=== PATIENT | female | born 1930 | race Caucasian/White ===

== ENCOUNTER 2016-05-26 08:21 | Inpatient (IN) | payer OTHER, MEDICARE ==
--- NOTE | 2016-05-26 08:45 | PDOC ---
History of Present Illness - History of Present Illness Initial Comments: 05/26/16 09:02 The patient is an 85 year old female with significant history of hypertension, hyperlipidemia, IDDM, sent from [facility] for sore throat, left ear pain , nasal congestion, and nonproductive cough that began when she woke up around 1 AM today. She also complains of associated nausea and diffuse headache that began at the same time. The patient denies chest pain or difficulty breathing. No fever or changes. No new body aches. UTD on flu vaccine. <Rosalba Ramsey - Last Filed: 05/26/16 09:30> <Christian Mercer - Last Filed: 05/26/16 10:31> - General Chief Complaint: Cold Symptoms Stated Complaint: FLU LIKE SYMTOMS Time Seen by Provider: 05/26/16 08:37 Past History <Rosalba Ramsey - Last Filed: 05/26/16 09:30> - Past Medical History Anemia: No Asthma: No Cancer: No Cardiac Disorders: No CVA: No COPD: No CHF: No Dementia: No Diabetes: Yes (IDDM) GI Disorders: No Disorders: No HTN: Yes Hypercholesterolemia: Yes Liver Disease: No Psychiatric Problems: Yes (depression, insomnia) Seizures: No Thyroid Disease: Yes (thyroid nodule) Other medical history: osteoarthritis right shoulder, moderate lumbar spondylosis. - Surgical History Appendectomy: Yes Cholecystectomy: Yes - Psycho/Social/Smoking Cessation Hx Anxiety: No Suicidal Ideation: No Smoking History: Never smoked Have you smoked in the past 12 months: No Information on smoking cessation initiated: No Hx Alcohol Use: No Drug/Substance Use Hx: No Substance Use Type: None <Christian Mercer - Last Filed: 05/26/16 10:31> - Past Medical History Allergies/Adverse Reactions: Allergies Allergy/AdvReac Type Severity Reaction Status Date / Time No Known Allergies Allergy Verified 05/26/16 08:38 Home Medications: Ambulatory Orders Acetaminophen [Tylenol -] 500 mg PO TID 05/26/16 Albuterol Sulfate Inhaler - [Ventolin Hfa Inhaler -] 1 - 2 inh PO Q4H 05/26/16 Amlodipine Besylate [Norvasc -] 5 mg PO DAILY 05/26/16 Furosemide [Lasix -] 20 mg PO DAILY 05/26/16 Gabapentin [Neurontin] 300 mg PO TID 05/26/16 Hydrocortisone 2.5% Lotion [Hytone 2.5% Lotion -] 1 applic TP BID 05/26/16 Ibuprofen [Motrin -] 600 mg PO TID 05/26/16 Insulin Glargine,Hum.rec.anlog [Lantus Solostar PEN (NF)] 50 units SQ DAILY Mag Hydrox/Al Hydrox/Simeth [Rulox Suspension] 30 ml PO BID PRN 05/26/16 Magnesium Oxide [Magnesium] 400 mg PO BID 05/26/16 Menthol [Bengay Ultra Strength] 1 each TP DAILY 05/26/16 Mirtazapine [Remeron -] 45 mg PO HS 05/26/16 RX: Simvastatin 20 mg PO DAILY 05/26/16 Venlafaxine HCl ER [Effexor Xr -] 75 mg PO DAILY 05/26/16 Venlafaxine HCl ER [Effexor Xr -] 150 mg PO HS 05/26/16 Review of Systems - Review of Systems Constitutional: No: Chills, Fever HEENTM: Yes: Ear Pain, Nose Congestion, Throat Pain Respiratory: Yes: Cough. No: Shortness of Breath Cardiac (ROS): No: Chest Pain ABD/GI: No: Diarrhea, Nausea, Vomiting : No: Dysuria, Frequency Musculoskeletal: Yes: Joint Pain (chronic) All Other Systems: Reviewed and Negative <Christian Mercer - Last Filed: 05/26/16 10:31> *Physical Exam - Vital Signs Last Vital Signs Temp Pulse Resp BP Pulse Ox 77 18 184/75 92 L 05/26/16 08:31 05/26/16 08:31 05/26/16 08:31 05/26/16 08:31 - Physical Exam Comments: 05/26/16 09:07 GENERAL: The patient is awake, alert, and fully oriented, in no acute distress. HEAD: Normal with no signs of trauma. EYES: Pupils equal, round and reactive to light, extraocular movements intact, sclera anicteric, conjunctiva clear with no pallor. ENT: Left ear: cerumen in canal, small effusion, no obvius TM bulging or erythema. Right ear normal. Nares patent. Oropharynx is mildly erythematous, no exudates or swelling, uvula midline, no tonsillar enlargement. Moist mucous membranes. NECK: Normal range of motion, supple without lymphadenopathy, JVD, or masses. LUNGS: Coarse breath sounds at bilateral lung bases, right>left No wheeze/ crackles. HEART: Regular rate and rhythm, normal S1 and S2 without murmur or rub. ABDOMEN: Soft/nontender/nondistended. BS wnl. No guarding or rebound. No palpable masses. No hepatosplenomegaly. EXTREMITIES: Normal range of motion, no edema. No clubbing or cyanosis. No cords, erythema, or tenderness. NEUROLOGICAL: Cranial nerves II through XII grossly intact. Normal speech, gait deferred. PSYCH: Normal mood, normal affect. SKIN: Warm, Dry, normal turgor. Chronic papular/excoriated rash to shoulder and head (x30 years without evidence of superimposed cellulitis) <Rosalba Ramsey - Last Filed: 05/26/16 09:30> - Vital Signs Last Vital Signs Temp Pulse Resp BP Pulse Ox 77 18 184/75 92 L 05/26/16 08:31 05/26/16 08:31 05/26/16 08:31 05/26/16 08:31 <Christian Mercer - Last Filed: 05/26/16 10:31> Heart Score/ECG Review #1 ECG reviewed & interpreted by me at: 08:37 General ECG Interpretation: Sinus Rhythm, Normal Rate (74), Normal Intervals ( LVH), No acute ischemic changes <Christian Mercer - Last Filed: 05/26/16 10:31> ED Treatment Course - LABORATORY CBC & Chemistry Diagram: 05/26/16 08:43 05/26/16 09:00 - RADIOLOGY Radiology Studies Ordered: Category Date Time Status CHEST X-RAY PORTABLE* [RAD] Stat Radiology 05/26/16 08:43 Ordered <Christian Mercer - Last Filed: 05/26/16 10:31> Medical Decision Making - Medical Decision Making 05/26/16 09:31 Chest x-ray, read and reviewed by Dr. Peres, reveals large heart, new congestive changes, elevated right hemidiaphragm. <Rosalba Ramsey - Last Filed: 05/26/16 09:30> - Medical Decision Making 05/26/16 09:16 A portion of this note was documented by scribe services under my direction. I have reviewed the details of the note, within reason, and agree with the documentation with the following case summary and management plan written by me. 85-year-old female from [facility] with history of diabetes and high cholesterol, admission earlier this year for pneumonia presents with sore throat/left ear pain and cough since around 1 AM, denies any shortness of breath or chest pain. No fevers or chills. Received her flu vaccine. Vitals stable except for O2 sat of 92%. Generally well-appearing, speaking full sentences, no acute distress Remainder of exam as noted with no evidence of strep pharyngitis, otitis, but some abnormal lung sounds at the bases 85 year old female with URI type symptoms since 1 AM, O2 sat notably 92% at triage. Rule out pneumonia or influenza, CHF exacerbation, possibly viral etiology pharyngitis. labs, influenza/strep/RSV swabs, trop cxr, ekg trial of neb reassess 05/26/16 09:46 CXR with congestive changes, WBC 11.7. Given bibasilar abnormalities on lung exam and CXR, seems more consistent with CHF exacerbation/pulm edema than infectious process. Remaining workup still pending. Will start lasix, will need admission. 05/26/16 10:16 Chemistries notable for mild acute renal insufficiency, creatinine 1.3 from baseline 0.9-1.1. Troponin negative. Clinically unchanged, O2 sat improves to 100% on 2L O2, will proceed with admission. UA with 7wbc but no leuk/nitrites. 05/26/16 10:29 Accepted for inpatient tele by Dr. Munoz <Christian Mercer - Last Filed: 05/26/16 10:31> *DC/Admit/Observation/Transfer - Attestations Scribe Attestion: 05/26/16 09:11 Documentation prepared by Rosalba Ramsey, acting as medical parasitologist for Christian Mercer MD. <Rosalba Ramsey - Last Filed: 05/26/16 09:30> - Discharge Dispostion Admit: Yes <Christian Mercer - Last Filed: 05/26/16 10:31> Diagnosis at time of Disposition: Upper respiratory infection Qualifiers: URI type: unspecified viral URI Qualified Code(s): J06.9 - Acute upper respiratory infection, unspecified CHF exacerbation Qualifiers: Congestive heart failure type: diastolic Qualified Code(s): I50.33 - Acute on chronic diastolic (congestive) heart failure - Discharge Dispostion Condition at time of disposition: Fair - Referrals Referrals: Ab Dykes [Primary Care Provider] -
[2016-05-26] MEDS ORDERED: ALBUTEROL SO4 2.5/IPRATROPIUM 0.5 INH SOL 3 ML VIAL.NEB. NEB ONE (09:14)
[2016-05-26 09:35] LABS: BASOPHIL 0.9 % (0-2.0); EOSINOPHIL 2.7 % (0-4.5); MCH 29.2 pg (25.7-33.7); MCHC 33.4 g/dl (32.0-36.0); MEAN CELL VOLUME 87.4 fl (80-96); MEAN PLT VOLUME 9.6 fl (7.5-11.1); NEUTROPHILS 72.3 % (42.8-82.8); PLATELET COUNT 281 K/MM3 (134-434); RDW 13.6 % (11.6-15.6); WHITE BLOOD COUNT 11.7 K/mm3 (4.0-10.0)
[2016-05-26] MEDS ORDERED: FUROSEMIDE 40 MG/4 ML INJECTABLE VIAL IVPUSH ONE (09:45)
[2016-05-26 09:48] LABS: INR 0.96 (0.82-1.09); PROTHROMBIN TIME (PATIENT) 10.6 SEC (9.98-11.88)
[2016-05-26 09:51] LABS: ACTIVATED PTT 35.7 SECONDS (26.9-34.4)
[2016-05-26 10:00] LABS: ALBUMIN 3.8 g/dl (3.4-5.0); ALK PHOS 95 U/L (45-117); ANION GAP 8 (8-16); BILIRUBIN,TOTAL 0.5 mg/dL (0.2-1.0); CALCIUM 8.7 mg/dL (8.5-10.1); CO2 28 mmol/L (21-32); CREATININE 1.3 mg/dL (0.55-1.02); GLUCOSE,RANDOM 127 mg/dL (74-106); SGOT/AST 28 U/L (15-37); SGPT/ALT 23 U/L (12-78); TOT PROT 8.4 g/dl (6.4-8.2); TROPONIN I < 0.02 ng/ml (0.00-0.05)
[2016-05-26] MEDS ORDERED: FUROSEMIDE 40 MG/4 ML INJECTABLE VIAL ONE (10:05)
[2016-05-26 10:12] LABS: URINE APPEARANCE CLEAR; URINE BILIRUBIN NEGATIVE (NEGATIVE); URINE BLOOD NEGATIVE (NEGATIVE); URINE COLOR STRAW; URINE GLUCOSE (UA) NEGATIVE (NEGATIVE); URINE KETONE NEGATIVE (NEGATIVE); URINE LEUK ESTERASE NEGATIVE (NEGATIVE); URINE NITRITE NEGATIVE (NEGATIVE); URINE UROBILINOGEN NEGATIVE E.U./dl (0.2-1.0)
[2016-05-26 10:19] LABS: URINE PROTEIN 2+ (NEGATIVE)
[2016-05-26 10:22] LABS: URINE BACTERIA FEW /hpf (NONE SEEN); URINE MUCUS RARE; URINE RBC <1 /hpf (0-3); URINE WBC 7 /hpf (3-5)
[2016-05-26] MEDS ORDERED: ACETAMINOPHEN 500 MG TABLET (FP) PO PRN (10:58)
[2016-05-26] MEDS ORDERED: ACETAMINOPHEN 325 MG TABLET (FP) PO PRN (11:00)
--- NOTE | 2016-05-26 11:03 | HP ---
CHIEF COMPLAINT: Acute onset SOB PCP: Ab Dykes HISTORY OF PRESENT ILLNESS: 85 year old F brought in from [facility] due to acute onset SOB this AM and treated IV lasix 40mg IV X 1 in the ED. No formal history diagnosis of CHF per history, pt states she does not follow with a development engineer, but she is on lasix at her [place]. Last admission here was 09/2015 when she was admitted for PNA. Currently, reports ongoing nasal congestion, DELUCA, left ear pain. No eye pain, eye discharge, neck pain or myalgias. Denies any known sick contacts, denies any known fevers/chills. Denies any worsening LE. Unknown baseline weight. EKG NSR, trop negative X 1 ROS also positive for throat pain, but continues to have a good appetite. Currently, seen on 2L NC in the ED (at baseline does not use O2) +urinary frequency and dysuria, although UA is negative for infection HCP is daughter Teodora [phone] (home) [phone] (cell) ER course was notable for: (1) WBC 11.7 (2) Cr 1.3 (baseline 0.9-1) (3) CXR significant for cardiomegaly and new congestive changes (4) Flu negative Recent Travel: Denies PAST MEDICAL HISTORY: DM HPL HTN no known CHF history, although on lasix at [place] PAST SURGICAL HISTORY: Appendectomy Cholecystectomy L cataract surgery Thyroid nodule B/l knee replacements hospitalized for depression/insomnia FIzation of left femur fracture "skin disease" --not psoriasis Social History: Smoking: denies Alcohol: denies Drugs: denies Family History: not pertinent Allergies: NKDA No Known Allergies Allergy (Verified 05/26/16 08:38) HOME MEDICATIONS: Medication Instructions Recorded Acetaminophen [Tylenol -] 500 mg PO TID 05/26/16 Albuterol Sulfate Inhaler - 1 - 2 inh PO Q4H 05/26/16 [Ventolin Hfa Inhaler -] Amlodipine Besylate [Norvasc -] 5 mg PO DAILY 05/26/16 Furosemide [Lasix -] 20 mg PO DAILY 05/26/16 Gabapentin [Neurontin] 300 mg PO TID 05/26/16 Hydrocortisone 2.5% Lotion [Hytone 1 applic TP BID 12/31/16 2.5% Lotion -] (Ibuprofen [Motrin -] 600 mg PO TID 05/26/16 Insulin Glargine,Hum.rec.anlog 50 units SQ DAILY 05/26/16 [Lantus Solostar PEN (NF)] Mag Hydrox/Al Hydrox/Simeth [Rulox 30 ml PO BID PRN 05/26/16 Suspension] Magnesium Oxide [Magnesium] 400 mg PO BID 05/26/16 Menthol [Bengay Ultra Strength] 1 each TP DAILY 05/26/16 Mirtazapine [Remeron -] 45 mg PO HS 05/26/16 Simvastatin 20 mg PO DAILY 05/26/16 Venlafaxine HCl ER [Effexor Xr -] 75 mg PO DAILY 05/26/16 Venlafaxine HCl ER [Effexor Xr -] 150 mg PO HS 05/26/16 REVIEW OF SYSTEMS CONSTITUTIONAL: Absent: fever, chills, diaphoresis, generalized weakness, malaise, loss of appetite, weight change HEENT: PRESENT: rhinorrhea, nasal congestion, throat pain, ear pain NEGATIVE: throat swelling, difficulty swallowing, mouth swelling, eye pain, visual changes CARDIOVASCULAR: Absent: chest pain, syncope, palpitations, irregular heart rate, lightheadedness , peripheral edema RESPIRATORY: PRESENT: SOB, at baseline sleeps with 1 pillow for comfort Absent: cough, shortness of breath, dyspnea with exertion, orthopnea, wheezing, stridor, hemoptysis GASTROINTESTINAL: Absent: abdominal pain, abdominal distension, nausea, vomiting, diarrhea, constipation, melena, hematochezia GENITOURINARY: PRESENT: dysuria, frequency NEGATIVE: urgency, hesitancy, hematuria, flank pain, genital pain MUSCULOSKELETAL: Absent: myalgia, arthralgia, joint swelling, back pain, neck pain SKIN: PRESENT: Skin disease "which is not psoriasis" HEMATOLOGIC/IMMUNOLOGIC: Absent: easy bleeding, easy bruising, lymphadenopathy, frequent infections ENDOCRINE: Absent: unexplained weight gain, unexplained weight loss, heat intolerance, cold intolerance NEUROLOGIC: PRESENT: headache NEGATIVE: focal weakness or paresthesias, dizziness, unsteady gait, seizure, mental status changes, bladder or bowel incontinence PSYCHIATRIC: PRESENT: h/o depression Absent: anxiety, suicidal or homicidal ideation, hallucinations. PHYSICAL EXAMINATION Gen: obese, elderly female, wearing 2L NC. Appears in NAD, speaking in full sentences HEENT: erythematous pharynx, +small exudates, no cervical lymphadenopathy. B/l ear canal with cerumen, difficult to visual left tympanic membranes but no discharge noted. R TM clear CV: regular, thick neck, no NVD Pulm: no wheeze, good inspiratory effort, bibasilar crackles Abd: Obese, nontender Ext: bilateral knee replacement scars, non pitting edema Skin: several skin lesions - notable on bilateral ears with crusted/dried blood , and upper back/neck. Not super-infected ASSESSMENT/PLAN: # SOB possibly multifactorial - ?Acute on chronic diastolic vs systolic CHF exacerbation vs acute viral illness -no prior known cardiac history, although patient is on lasix at [place]. Intially with uncontrolled BP 185/90 recorded prior to transfer -denies dietary indiscretions, states she receives all medications at [place] but doesn't know which ones. Per [place] records received lasix 20mg daily -received Lasix 40mg IV in ED, cont IV lasix, check BNP, echo -daily weights, low Na-diabetic diet -consult cardiology -Flu negative -treat supportively with nebs, O2 prn -ordered for LE doptinalers #DM restart home medications - Levemir 40 units (on 50 units of Lantus at [place]), can uptitrate as needed -hold glimepiride as associated with risk of hypoglycemia -insulin sliding scale #Leukocytosis -UA negative, CXR negative for infection -f/u blood culture -f/u strep throat culture -ear exam is benign with only cerumen, overlying skin lesions do not appear to be super-infected #HTN -needs improved control, currently on norvasc and losartan at [place] -will continue losartan, may benefit from b-jorge pending echo results -will need additional prn meds #ANISH -Cr 1.3 on admission, baseline 0.9-1 -likely to increase given recent IV lasix administration. Would not give IV fluids -hold motrin pt was previously taking #DELUCA can tylenol 1000mg IV X1, ordered for additional 325mg PO prn doses #HPL -cont simvastatin #Skin lesions hydrocortisone ointment #Elevated PTT -interestingly elevated and suggestive of possible coagulopathy, ie antiphospholipid Ab (pt not on HSQ at [place]) -borderline high , f/u in PTT AM #psych -h/o depression - ordered for venlafaxine ER dosing AM/PM -mirtazapine d/c'd on 04/25/16 PPx: ordered for lovenox today, would recommend early ambulation, PT Visit type - Emergency Visit Emergency Visit: Yes ED Registration Date: 05/26/16 Care time: The patient presented to the Emergency Department on the above date and was hospitalized for further evaluation of their emergent condition. - New Patient This patient is new to me today: No - Critical Care Critical Care patient: No
[2016-05-26] MEDS ORDERED: ACETAMINOPHEN 1000 MG/100 ML VIAL (NON FORMULARY) IVPB ONE (11:15)
[2016-05-26] MEDS ORDERED: ACETAMINOPHEN INJECTION 100 ML IVPB ONE (11:29)
[2016-05-26] MEDS ORDERED: ENOXAPARIN NA (PORCINE) 40 MG/0.4 ML DISP.SYRIN SQ ONE (11:29)
[2016-05-26 12:10] LABS: VENOUS BLOOD GAS HCO3 27.6 meq/L (22-29)
[2016-05-26 12:11] LABS: VENOUS PH 7.3 (7.31-7.41)
[2016-05-26] MEDS ORDERED: MAG HYDROX/AL HYDROX/SIMETH 30 ML UNIT-DOSE CUP PO PRN (12:55)
[2016-05-26] MEDS ORDERED: LOSARTAN POTASSIUM 25 MG TABLET ONE (12:55)
[2016-05-26] MEDS ORDERED: INSULIN DETEMIR 100 UNITS/ML MDV SQ ONE (12:57)
[2016-05-26] MEDS: LOSARTAN POTASSIUM 50 MG TABLET (FP) PO SCH (13:12)
[2016-05-26] MEDS: INSULIN DETEMIR 100 UNITS/ML MDV SQ SCH (13:12)
--- NOTE | 2016-05-26 13:23 | CONSULT ---
Consult Consult Specialty:: Cardiology Referred by:: Hospitalist Reason for Consultation:: SOB, possible CHF - History of Present Illness Chief Complaint: SOB History of Present Illness: 85 year old woman with a history of HTN, HLD, DMII, possible CHF (on lasix at [place] ), prior admission for PNA, admitted with ear pain, throat pain, nasal congestion, and sob that she states started last night, also noted to be hypoxic. reports significant weight gain since admission to the assisted. no pnd, orthopnea, or LE edema. no chest pain, palpitations, lightheadedness, dizziness, syncope, or near syncope. - History Source History Provided By: Patient, Medical Record Limitations to Obtaining History: No Limitations - Past Medical History Cardio/Vascular: Yes: HTN, Hyperlipdemia Pulmonary: Yes: Pneumonia Psych: Yes: Depression Endocrine: Yes: Diabetes Mellitus - Past Surgical History Past Surgical History: Yes: Appendectomy, Cholecystectomy, Hysterectomy - Alcohol/Substance Use Hx Alcohol Use: No History of Substance Use: reports: None - Smoking History Smoking history: Never smoked Have you smoked in the past 12 months: No - Social History Usual Living Arrangement: Snf ADL: Support Services Occupation: retired History of Recent Travel: No Home Medications - Allergies Allergies/Adverse Reactions: Allergies Allergy/AdvReac Type Severity Reaction Status Date / Time No Known Allergies Allergy Verified 05/26/16 08:38 - Home Medications Home Medications: Ambulatory Orders Acetaminophen [Tylenol -] 500 mg PO TID 05/26/16 Albuterol Sulfate Inhaler - [Ventolin Hfa Inhaler -] 1 - 2 inh PO Q4H 05/26/16 Amlodipine Besylate [Norvasc -] 5 mg PO DAILY 05/26/16 Furosemide [Lasix -] 20 mg PO DAILY 05/26/16 Gabapentin [Neurontin] 300 mg PO TID 05/26/16 Hydrocortisone 2.5% Lotion [Hytone 2.5% Lotion -] 1 applic TP BID 05/26/16 Ibuprofen [Motrin -] 600 mg PO TID 05/26/16 Insulin Glargine,Hum.rec.anlog [Lantus Solostar PEN (NF)] 50 units SQ DAILY Mag Hydrox/Al Hydrox/Simeth [Rulox Suspension] 30 ml PO BID PRN 05/26/16 Magnesium Oxide [Magnesium] 400 mg PO BID 05/26/16 Menthol [Bengay Ultra Strength] 1 each TP DAILY 05/26/16 Mirtazapine [Remeron -] 45 mg PO HS 05/26/16 Simvastatin 20 mg PO DAILY 05/26/16 Venlafaxine HCl ER [Effexor Xr -] 75 mg PO DAILY 05/26/16 Venlafaxine HCl ER [Effexor Xr -] 150 mg PO HS 05/26/16 Family Disease History - Family Disease History Family History: Denies Review of Systems - Review of Systems Constitutional: denies: No Symptoms, Chills, Diaphoresis, Fever, Lethargy, Loss of Appetite, Malaise, Night Sweats, Unintentional Wgt. Loss, Weakness, Other Eyes: denies: No Symptoms, Blind Spots, Blurred Vision, Double Vision, Eye Pain , Floaters, Photophobia, Recent Change in Vision, Other HENT: reports: Ear Pain, Nasal Congestion, Throat Pain. denies: No Symptoms, Difficult Swallowing, Ear Discharge, Epistaxis, Gingival Bleeding, Hearing Loss , Mouth Swelling, Ocular Prosthesis, Toothache, Ringing in Ears, Other Neck: denies: No Symptoms, Decreased ROM, Lumps, Pain on Movement, Stiffness, Swollen Glands, Tenderness, Other Cardiovascular: reports: Shortness of Breath. denies: No Symptoms, Chest Pain, Edema, Palpitations, Other Respiratory: reports: Cough, SOB, SOB on Exertion. denies: No Symptoms, Exercise Intolerance, Hemoptysis, Orthopnea, PND, Snoring, Wheezing, Other Gastrointestinal: denies: No Symptoms, Abdominal Pain, Bloating, Constipation, Diarrhea, Dysphagia, Indigestion, Melena, Nausea, Rectal Bleeding, Vomiting, Vomiting Blood, Other Genitourinary: denies: No Symptoms, Burning, Discharge, Dysuria, Flank Pain, Frequency, Hematuria, Incontinence, Lesions, Menses, Pain, Testicular Mass, Testicular Pain, Testicular Swelling, Urgency, Vaginal Bleeding, Other Breasts: denies: No Symptoms Reported, See HPI, Breast Implants, Discharge from Nipple, Lumps, Pain, Skin Changes, Other Musculoskeletal: denies: No Symptoms, Back Pain, Crepitus, Decreased ROM, Extremity Pain, Joint Pain, Joint Swelling, Muscle Pain, Muscle Cramps, Muscle Weakness, Other Integumentary: denies: No Symptoms, Blister, Bruising, Change in Color, Eczema, Erythema, Incision, Lesions, Lump, Pallor, Pruritis, Rash, Wound, Other Neurological: denies: No Symptoms, Change in LOC, Change in Speech, Confusion, Dizziness, Headache, Incoordination, Numbness, Parasthesia, Pre-Existing Deficit , Seizure, Syncope, Tremors, Unsteady Gait, Weakness, Other Endocrine: denies: No Symptoms, Excessive Sweating, Flushing, Increased Hunger, Increased Thirst, Intolerance to Cold, Intolerance to Heat, Unexplained Weight Gain, Unexplained Weight Loss, Other Hematology/Lymphatic: denies: No Symptoms, Easily Bruised, Excessive Bleeding, Swollen Glands, Other Psychiatric: denies: No Symptoms, Altered Sleep Pattern, Anxiety, Depression, Hallucinations, Panic, Paranoia, Suicidal, Other - Risk Factors Known Risk Factors: Yes: Age, Hypercholesterolemia, Hypertension Vital Signs: Vital Signs Temperature 98.5 F 05/26/16 09:20 Pulse Rate 77 05/26/16 08:31 Respiratory Rate 18 05/26/16 08:31 Blood Pressure 184/75 05/26/16 08:31 O2 Sat by Pulse Oximetry (%) 92 L 05/26/16 08:31 Constitutional: Yes: No Distress, Calm, Obese Eyes: Yes: Conjunctiva Clear, EOM Intact, PERRL HENT: Yes: WNL, Atraumatic, Normocephalic Neck: Yes: WNL, Supple, Trachea Midline Respiratory: Yes: Regular, Cough, Diminished (slight dec b/l bases). No: Rales , Rhonchi, Wheezes Gastrointestinal: Yes: WNL, Normal Bowel Sounds, Soft. No: Distention, Tenderness Renal/: Yes: WNL Cardiovascular: Yes: WNL, Regular Rate and Rhythm. No: Bradycardia, Tachycardia , Pulse Irregular, Gallop, Rub, Varicosities JVD: No Carotid Bruit: No PMI: Non-Displaced Heart Sounds: Yes: S1, S2. No: Split S2, S3, S4, Clicks, Gallop, Rub, Bruit Murmur: Yes: Systolic Murmur (apex), Grade 3. No: Diastolic Murmur Musculoskeletal: Yes: WNL Extremities: Yes: WNL Edema: No Peripheral Pulses WNL: Yes Peripheral Pulses: 2+ Left Doralis Pedis, 2+ Right Dorsalis Pedis Integumentary: Yes: WNL Neurological: Yes: WNL, Alert, Oriented, Cran Nerves II-XII Intact ...Motor Strength: WNL Psychiatric: Yes: WNL, Alert, Oriented - Other Data Labs, Other Data: INR, PTT INR 0.96 (0.82-1.09) 05/26/16 09:00 ekg-nsr, no sig ST abnl Imaging - Results Chest X-ray: Report Reviewed, Image Reviewed EKG: Report Reviewed, Image Reviewed Other: Report Reviewed, Image Reviewed (tele-nsr) Problem List - Problems (1) CHF exacerbation Code(s): I50.9 - HEART FAILURE, UNSPECIFIED Qualifiers: Congestive heart failure type: diastolic Qualified Code(s): I50.33 - Acute on chronic diastolic (congestive) heart failure (2) Diabetes Code(s): E11.9 - TYPE 2 DIABETES MELLITUS WITHOUT COMPLICATIONS (3) Hyperlipidemia Code(s): E78.5 - HYPERLIPIDEMIA, UNSPECIFIED (4) Hypertension Code(s): I10 - ESSENTIAL (PRIMARY) HYPERTENSION (5) SOB (shortness of breath) Code(s): R06.02 - SHORTNESS OF BREATH Assessment/Plan 85 year old woman with a history of HTN, HLD, DMII, possible CHF (on lasix at [place] ), prior admission for PNA, admitted with ear pain, throat pain, nasal congestion, and sob that she states started last night, also noted to be hypoxic. SOB-likely multifactorial -likely URI with mild superimposed acute on chronic CHF (unknown type) -does not appear significantly volume overloaded despite Cxr findings, minimal pulmonary rales, no LE edema -she does have a murmur on exam, loudest in apex, possible mitral regurgitation with flash pulm edema secondary to uncontrolled HTN -given 1 dose Lasix 40mg IV in er -can cont current Lasix 20mg IV daily -monitor strict I/os and daily weights -will re-evaluate for need for additional lasix -work up and treatment of URI in progress -HTN control, cont losartan 100mg daily for now, can add amlodipine or nifedipine if needed for additional HTN control -cardiac enzymes wnl x 1, no ischemia on ekg
[2016-05-26] MEDS ORDERED: amLODIPine BESYLATE 5 MG TABLET (FP) PO ONE (13:48)
[2016-05-26 13:58] VITALS: BMI 37.5
[2016-05-26] MEDS ORDERED: GABAPENTIN 100 MG CAPSULE (FP) PO SCH ×2 (14:00)
[2016-05-26] MEDS: MIRTAZAPINE 15 MG TABLET (FP) PO SCH (16:11)
[2016-05-26] MEDS: GABAPENTIN 100 MG CAPSULE (FP) PO SCH ×2 (16:11→21:58)
[2016-05-26] MEDS: INSULIN SLIDING SCALE (NOVOLOG) 1 VIAL SQ SCH ×2 (17:19→22:02)
[2016-05-26] MEDS: ATORVASTATIN CA 20 MG TABLET (FP) PO SCH (21:58)
[2016-05-26] MEDS: traMADol HCL 50 MG TABLET PO SCH (21:58)
[2016-05-27] MEDS: INSULIN SLIDING SCALE (NOVOLOG) 1 VIAL SQ SCH ×4 (06:25→21:47)
[2016-05-27] MEDS: GABAPENTIN 100 MG CAPSULE (FP) PO SCH ×3 (06:54→21:48)
[2016-05-27 07:18] LABS: MCH 29.3 pg (25.7-33.7); MCHC 33.4 g/dl (32.0-36.0); MEAN CELL VOLUME 87.8 fl (80-96); MEAN PLT VOLUME 9.3 fl (7.5-11.1); PLATELET COUNT 277 K/MM3 (134-434); RDW 13.6 % (11.6-15.6); WHITE BLOOD COUNT 9.9 K/mm3 (4.0-10.0)
[2016-05-27 07:58] LABS: CALCIUM 8.1 mg/dL (8.5-10.1); CREATININE 1.5 mg/dL (0.55-1.02); MAGNESIUM 2.7 mg/dL (1.8-2.4)
[2016-05-27] MEDS ORDERED: PT OWN MED DRAWER 7, Y5N ONE ×3 (08:23→17:30)
[2016-05-27] MEDS ORDERED: VENLAFAXINE HCL 75 MG TABLET PO SCH (09:00)
[2016-05-27] MEDS ORDERED: FUROSEMIDE 40 MG/4 ML INJECTABLE VIAL IVPUSH SCH ×2 (10:00→17:21)
[2016-05-27] MEDS: MIRTAZAPINE 15 MG TABLET (FP) PO SCH (10:24)
[2016-05-27] MEDS: traMADol HCL 50 MG TABLET PO SCH ×2 (10:25→21:53)
[2016-05-27] MEDS: amLODIPine BESYLATE 5 MG TABLET (FP) PO SCH (10:25)
[2016-05-27] MEDS: LOSARTAN POTASSIUM 50 MG TABLET (FP) PO SCH (10:25)
[2016-05-27] MEDS: VENLAFAXINE HCL 75 MG E.R. CAPSULES (FP) PO SCH ×2 (10:25→17:31)
[2016-05-27] MEDS: INSULIN DETEMIR 100 UNITS/ML MDV SQ SCH (10:30)
--- NOTE | 2016-05-27 11:23 | PN ---
Progress Note, Physician History of Present Illness: seen and examined today in nad. states she is feeling better. no overnight events. no new complaints. - Current Medication List Current Medications: Active Medications Acetaminophen (Tylenol -) 325 mg PO Q6H PRN PRN Reason: FEVER OR PAIN Al Hydroxide/Mg Hydroxide (Mylanta Oral Suspension -) 30 ml PO Q6HPO PRN PRN Reason: INDIGESTION Albuterol Sulfate (Ventolin 0.083% Nebulizer Soln -) 1 amp NEB Q4H PRN PRN Reason: SHORT OF BREATH/WHEEZING Amlodipine Besylate (Norvasc -) 5 mg PO DAILY [facility] Last Admin: 05/27/16 10:25 Dose: 5 mg Atorvastatin Calcium (Lipitor -) 20 mg PO HS [facility] Last Admin: 05/26/16 21:58 Dose: 20 mg Furosemide (Lasix Injection -) 20 mg IVPUSH DAILY [facility] Last Admin: 05/27/16 10:24 Dose: 20 mg Gabapentin (Neurontin -) 300 mg PO TID [facility] Last Admin: 05/27/16 06:54 Dose: 300 mg Hydrocortisone (Anusol 2.5% Hc Cream -) 1 applic TP DAILY [facility] Insulin Aspart (Novolog Vial Sliding Scale -) 1 vial SQ ACHS [facility] PRN Reason: Protocol Last Admin: 05/27/16 06:25 Dose: Not Given Insulin Detemir (Levemir Vial) 40 units SQ DAILY [facility] Last Admin: 05/27/16 10:30 Dose: 40 units Losartan Potassium (Cozaar -) 100 mg PO DAILY [facility] Last Admin: 05/27/16 10:25 Dose: 100 mg Mirtazapine (Remeron -) 45 mg PO DAILY [facility] Last Admin: 05/27/16 10:24 Dose: 45 mg Tramadol HCl (Ultram -) 50 mg PO BID [facility] Last Admin: 05/27/16 10:25 Dose: 50 mg Venlafaxine HCl (Effexor Xr -) 75 mg PO DAILY@0800 [facility] Last Admin: 05/27/16 10:25 Dose: 75 mg Venlafaxine HCl (Effexor Xr -) 150 mg PO DAILY@1730 [facility] - Objective Vital Signs: Vital Signs Temperature 98.8 F 05/27/16 10:32 Pulse Rate 71 05/27/16 10:32 Respiratory Rate 20 01/01/17 10:32 Blood Pressure 133/64 01/01/17 10:32 O2 Sat by Pulse Oximetry (%) 95 05/26/16 21:00 Constitutional: Yes: No Distress, Calm, Obese Eyes: Yes: WNL, Conjunctiva Clear, EOM Intact, PERRL HENT: Yes: WNL, Atraumatic, Normocephalic Neck: Yes: WNL, Supple, Trachea Midline Cardiovascular: Yes: Regular Rate and Rhythm, Murmur, S1, S2. No: Bradycardia, Tachycardia, Pulse Irregular, Bruit, JVD, Gallop, Rub, S3, S4, Varicosities Respiratory: Yes: Regular, Diminished (slightly decreased b/l bases). No: Rales , Rhonchi, Wheezes Gastrointestinal: Yes: WNL, Normal Bowel Sounds, Soft. No: Distention, Tenderness Musculoskeletal: Yes: WNL Extremities: Yes: WNL Edema: No Peripheral Pulses WNL: Yes Peripheral Pulses: Left Doralis Pedis: 2+, Right Dorsalis Pedis: 2+ Integumentary: Yes: WNL Neurological: Yes: WNL, Alert, Oriented, Cran Nerves II-XII Intact ...Motor Strength: WNL Psychiatric: Yes: WNL, Alert, Oriented Labs: CBC, BMP 05/27/16 06:00 05/27/16 06:00 INR, PTT INR 0.96 (0.82-1.09) 05/26/16 09:00 - ....Imaging Chest X-ray: Report Reviewed, Image Reviewed EKG: Report Reviewed, Image Reviewed Other: Report Reviewed, Image Reviewed (tele-nsr, occasional pvcs, no sig arrhythmia) Problem List - Problems (1) CHF exacerbation Code(s): I50.9 - HEART FAILURE, UNSPECIFIED Qualifiers: Congestive heart failure type: diastolic Qualified Code(s): I50.33 - Acute on chronic diastolic (congestive) heart failure (2) Diabetes Code(s): E11.9 - TYPE 2 DIABETES MELLITUS WITHOUT COMPLICATIONS (3) Hyperlipidemia Code(s): E78.5 - HYPERLIPIDEMIA, UNSPECIFIED (4) Hypertension Code(s): I10 - ESSENTIAL (PRIMARY) HYPERTENSION (5) SOB (shortness of breath) Code(s): R06.02 - SHORTNESS OF BREATH Assessment/Plan 85 year old woman with a history of HTN, HLD, DMII, possible CHF (on lasix at [place] ), prior admission for PNA, admitted with ear pain, throat pain, nasal congestion, and sob that she states started last night, also noted to be hypoxic. SOB-likely multifactorial, URI with mild superimposed acute on chronic CHF ( unknown type) -improved today -I/os not recorded -cont current Lasix dose for now -would repeat Cxr to re-evaluate for pulm vasc congestion -she does have a murmur on exam, loudest in apex, possible mitral regurgitation with flash pulm edema secondary to uncontrolled HTN -plan for echo tomorrow if available -monitor strict I/os and daily weights -URI improving -HTN control, cont losartan 100mg daily, norvasc 5mg daily was started today for additional HTN control -cardiac enzymes wnl x 2, no ischemia on ekg
[2016-05-27] MEDS ORDERED: ENOXAPARIN NA (PORCINE) 40 MG/0.4 ML DISP.SYRIN SQ SCH (11:30)
[2016-05-27] MEDS ORDERED: INSULIN (NOVOLOG) ASPART 100 UNITS/ML 10ML VIAL ONE (11:46)
--- NOTE | 2016-05-27 13:12 | EKG ---
Test Reason : Blood Pressure : / mmHG Vent. Rate : 074 BPM Atrial Rate : 074 BPM P-R Int : 202 ms QRS Dur : 094 ms QT Int : 406 ms P-R-T Axes : 019 -11 012 degrees QTc Int : 450 ms NORMAL SINUS RHYTHM MINIMAL VOLTAGE CRITERIA FOR LVH, MAY BE NORMAL VARIANT NONSPECIFIC ST ABNORMALITY Confirmed by MD KOFI, SUSAN ([id number]) on 05/27/2016 1:12:25 PM Referred By: Overread By: SUSAN KIRBY MD
[2016-05-27] MEDS: HYDROCORTISONE 2.5% TOPICAL CREAM 30 GM TUBE TP SCH ×2 (14:17→14:19)
--- NOTE | 2016-05-27 20:40 | PN ---
Physical Exam: SUBJECTIVE: Patient seen and examined having dyspnea on exertion. no chest pain or palpitations. OBJECTIVE: Vital Signs Temperature 98.2 F 05/27/16 18:35 Pulse Rate 73 05/27/16 18:35 Respiratory Rate 20 05/27/16 18:35 Blood Pressure 113/60 05/27/16 18:35 O2 Sat by Pulse Oximetry (%) 93 L 05/27/16 10:30 GENERAL: The patient is awake, alert, and fully oriented, in no acute distress. HEAD: Normal with no signs of trauma. EYES: PERRL, extraocular movements intact, sclera anicteric, conjunctiva clear. No ptosis. ENT: Ears normal, nares patent, oropharynx clear without exudates, moist mucous membranes. NECK: Trachea midline, full range of motion, supple. LUNGS: decreased BS BL , no W/R/R, no accessory muscle use. On 2l NC HEART: Regular rate and rhythm, S1, S2 positive, SEM2/6 ,no rub or gallop. ABDOMEN: Soft, nontender, nondistended, normoactive bowel sounds, no guarding, no rebound, no hepatosplenomegaly, no masses. EXTREMITIES: 2+ pulses, warm, well-perfused, no edema. NEUROLOGICAL: Cranial nerves II through XII grossly intact. Normal speech, gait not observed. PSYCH: Normal mood, normal affect. SKIN: Warm, dry, normal turgor, no rashes or lesions noted Laboratory Results - last 24 hr 05/26/16 05/27/16 05/27/16 22:01 06:00 06:00 WBC 9.9 RBC 4.23 Hgb 12.4 Hct 37.1 MCV 87.8 MCHC 33.4 RDW 13.6 Plt Count 277 MPV 9.3 PTT (Actin FS) Sodium 145 Potassium 4.1 Chloride 108 H Carbon Dioxide 31 Anion Gap 6 L BUN 29 H Creatinine 1.5 H POC Glucometer 119 Random Glucose 91 D Calcium 8.1 L Magnesium 2.7 H D 05/27/16 05/27/16 05/27/16 06:00 06:22 11:42 WBC RBC Hgb Hct MCV MCHC RDW Plt Count MPV PTT (Actin FS) 40.0 H Sodium Potassium Chloride Carbon Dioxide Anion Gap BUN Creatinine POC Glucometer 122 196 Random Glucose Calcium Magnesium 05/27/16 17:26 WBC RBC Hgb Hct MCV MCHC RDW Plt Count MPV PTT (Actin FS) Sodium Potassium Chloride Carbon Dioxide Anion Gap BUN Creatinine POC Glucometer 125 Random Glucose Calcium Magnesium Active Medications Generic Name Dose Route Start Last Admin Trade Name Freq PRN Reason Stop Dose Admin Acetaminophen 325 mg 05/26/16 11:00 Tylenol - PO Q6H PRN FEVER OR PAIN Al Hydroxide/Mg Hydroxide 30 ml 05/26/16 12:55 Mylanta Oral Suspension - PO Q6HPO PRN INDIGESTION Albuterol Sulfate 1 amp 05/26/16 10:54 Ventolin 0.083% Nebulizer Soln - NEB Q4H PRN SHORT OF BREATH/WHEEZING Amlodipine Besylate 5 mg 05/27/16 10:00 05/27/16 10:25 Norvasc - PO 5 mg DAILY [facility] Administration Atorvastatin Calcium 20 mg 05/26/16 22:00 05/26/16 21:58 Lipitor - PO 20 mg HS [facility] Administration Furosemide 40 mg 05/27/16 17:21 Lasix Injection - IVPUSH DAILY [facility] Gabapentin 300 mg 05/26/16 14:00 05/27/16 14:16 Neurontin - PO 300 mg TID [facility] Administration Hydrocortisone 1 applic 05/26/16 12:15 05/27/16 14:19 Anusol 2.5% Hc Cream - TP 1 applic DAILY [facility] Administration Insulin Aspart 1 vial 05/26/16 16:30 05/27/16 17:31 Novolog Vial Sliding Scale - SQ Not Given ACHS [facility] Protocol Insulin Detemir 40 units 05/26/16 12:00 05/27/16 10:30 Levemir Vial SQ 40 units DAILY [facility] Administration Losartan Potassium 100 mg 05/26/16 11:45 05/27/16 10:25 Cozaar - PO 100 mg DAILY [facility] Administration Mirtazapine 45 mg 05/26/16 13:15 05/27/16 10:24 Remeron - PO 45 mg DAILY [facility] Administration Tramadol HCl 50 mg 05/26/16 22:00 05/27/16 10:25 Ultram - PO 50 mg BID [facility] Administration Venlafaxine HCl 75 mg 05/27/16 08:00 05/27/16 10:25 Effexor Xr - PO 75 mg DAILY@0800 [facility] Administration Venlafaxine HCl 150 mg 05/27/16 17:30 05/27/16 17:31 Effexor Xr - PO 150 mg DAILY@1730 [facility] Administration Microbiology 05/26/16 09:46 Urine - Urine Clean Catch Urine Culture - Final NO GROWTH OBTAINED 05/26/16 08:43 Blood - Peripheral Venous Blood Culture - Preliminary NO GROWTH OBTAINED AFTER 24 HOURS, INCUBATION TO CONTINUE FOR 4 DAYS. 05/26/16 08:43 Blood - Peripheral Venous Blood Culture - Preliminary NO GROWTH OBTAINED AFTER 24 HOURS, INCUBATION TO CONTINUE FOR 4 DAYS. 05/26/16 09:19 Throat Throat Culture - Final NO BETA HEMOLYTIC STREPTOCOCCI ISOLATED 05/26/16 09:19 Throat Group A Strep Rapid Antigen - Final 05/26/16 09:00 Nasopharyngeal Swab Influenza Types A,B Antigen (AMADA) - Final 05/26/16 09:00 Nasopharyngeal Swab - Final ASSESSMENT/PLAN: Patient is a 85 year old woman with a history of HTN, HLD, DMII, possible CHF ( on lasix at [place]), prior admission for PNA, sob that she states started last night , also noted to be hypoxic. # Acute SOB on exertion multifactorial - URI vs Acute on chronic diastolic/ systolic CHF exacerbation On Lasix continue /Losartan #T2DM on insulin continue home meds; Levemir 40 units (on 50 units of Lantus at [place]), hold glimepiride as associated with risk of hypoglycemia -insulin sliding scale # acute Leukocytosis improved UA negative, CXR negative for infection -No growth so far , strep throat culture negative follow the send out #HTN controlled continue norvasc and losartan at [place]; echo is pending -#ANISH is worsening Cr 1.3 -->1.5 now will decrease Lasix and decrease losartan 50mg from 100mg (baseline 0.9-1) # h/o depression - ordered for venlafaxine ER dosing AM/PM continue-mirtazapine d/c'd on 04/25/16 DVT Px: Heparin sq bid ,early ambulation, PT Visit type - Emergency Visit Emergency Visit: Yes ED Registration Date: 05/26/16 Care time: The patient presented to the Emergency Department on the above date and was hospitalized for further evaluation of their emergent condition. - New Patient This patient is new to me today: Yes Date on this admission: 05/27/16 - Critical Care Critical Care patient: No
[2016-05-27] MEDS ORDERED: ACETAMINOPHEN 500 MG TABLET (FP) PO PRN (21:27)
[2016-05-27] MEDS: ATORVASTATIN CA 20 MG TABLET (FP) PO SCH (21:48)
[2016-05-27] MEDS ORDERED: VENLAFAXINE HCL 150 MG E.R. CAPSULE PO SCH (22:00)
[2016-05-28] MEDS: INSULIN SLIDING SCALE (NOVOLOG) 1 VIAL SQ SCH ×4 (06:12→21:18)
[2016-05-28] MEDS: GABAPENTIN 100 MG CAPSULE (FP) PO SCH ×3 (06:12→21:21)
[2016-05-28] MEDS ORDERED: PT OWN MED DRAWER 7, Y5N ONE ×2 (09:07→17:41)
[2016-05-28] MEDS: FUROSEMIDE 40 MG/4 ML INJECTABLE VIAL IVPUSH SCH (09:21)
[2016-05-28] MEDS: MIRTAZAPINE 15 MG TABLET (FP) PO SCH (09:22)
[2016-05-28] MEDS: LOSARTAN POTASSIUM 50 MG TABLET (FP) PO SCH (09:22)
[2016-05-28] MEDS: VENLAFAXINE HCL 75 MG E.R. CAPSULES (FP) PO SCH ×2 (09:22→17:44)
[2016-05-28] MEDS: HYDROCORTISONE 2.5% TOPICAL CREAM 30 GM TUBE TP SCH (09:22)
[2016-05-28] MEDS: amLODIPine BESYLATE 5 MG TABLET (FP) PO SCH (09:22)
[2016-05-28] MEDS: traMADol HCL 50 MG TABLET PO SCH ×2 (09:23→22:19)
[2016-05-28] MEDS: INSULIN DETEMIR 100 UNITS/ML MDV SQ SCH (09:47)
--- NOTE | 2016-05-28 11:53 | PN ---
Progress Note, Physician History of Present Illness: seen and examined today in nad. no overnight events. no new complaints. - Current Medication List Current Medications: Active Medications Acetaminophen (Tylenol -) 500 mg PO Q6H PRN PRN Reason: FEVER OR PAIN Last Admin: 05/27/16 21:49 Dose: 500 mg Al Hydroxide/Mg Hydroxide (Mylanta Oral Suspension -) 30 ml PO Q6HPO PRN PRN Reason: INDIGESTION Albuterol Sulfate (Ventolin 0.083% Nebulizer Soln -) 1 amp NEB Q4H PRN PRN Reason: SHORT OF BREATH/WHEEZING Amlodipine Besylate (Norvasc -) 5 mg PO DAILY [facility] Last Admin: 05/28/16 09:22 Dose: 5 mg Atorvastatin Calcium (Lipitor -) 20 mg PO HS [facility] Last Admin: 05/27/16 21:48 Dose: 20 mg Furosemide (Lasix Injection -) 20 mg IVPUSH DAILY [facility] Last Admin: 05/28/16 09:21 Dose: 20 mg Gabapentin (Neurontin -) 300 mg PO TID [facility] Last Admin: 05/28/16 06:12 Dose: 300 mg Hydrocortisone (Anusol 2.5% Hc Cream -) 1 applic TP DAILY [facility] Last Admin: 05/28/16 09:22 Dose: 1 applic Insulin Aspart (Novolog Vial Sliding Scale -) 1 vial SQ ACHS [facility] PRN Reason: Protocol Last Admin: 05/28/16 06:12 Dose: 2 units Insulin Detemir (Levemir Vial) 40 units SQ DAILY [facility] Last Admin: 05/28/16 09:47 Dose: 40 units Losartan Potassium (Cozaar -) 50 mg PO DAILY [facility] Last Admin: 05/28/16 09:22 Dose: 50 mg Mirtazapine (Remeron -) 45 mg PO DAILY [facility] Last Admin: 05/28/16 09:22 Dose: 45 mg Tramadol HCl (Ultram -) 25 mg PO BID [facility] Last Admin: 05/28/16 09:23 Dose: 25 mg Venlafaxine HCl (Effexor Xr -) 75 mg PO DAILY@0800 [facility] Last Admin: 05/28/16 09:22 Dose: 75 mg Venlafaxine HCl (Effexor Xr -) 150 mg PO DAILY@1730 [facility] Last Admin: 05/27/16 17:31 Dose: 150 mg - Objective Vital Signs: Vital Signs Temperature 98.2 F 05/28/16 06:00 Pulse Rate 66 05/28/16 06:00 Respiratory Rate 20 05/28/16 06:00 Blood Pressure 152/78 05/28/16 06:00 O2 Sat by Pulse Oximetry (%) 94 L 05/27/16 21:00 Constitutional: Yes: No Distress, Calm, Obese Eyes: Yes: WNL, Conjunctiva Clear, EOM Intact, PERRL HENT: Yes: WNL, Atraumatic, Normocephalic Neck: Yes: WNL, Supple, Trachea Midline Cardiovascular: Yes: Regular Rate and Rhythm, Murmur, S1, S2. No: Bradycardia, Tachycardia, Pulse Irregular, Bruit, JVD, Gallop, Rub, S3, S4, Varicosities Respiratory: Yes: Regular, Diminished. No: Rales, Rhonchi, Wheezes Gastrointestinal: Yes: WNL, Normal Bowel Sounds, Soft. No: Distention, Tenderness Musculoskeletal: Yes: WNL Extremities: Yes: WNL Edema: No Peripheral Pulses WNL: Yes Peripheral Pulses: Left Doralis Pedis: 2+, Right Dorsalis Pedis: 2+ Integumentary: Yes: WNL Neurological: Yes: WNL, Alert, Oriented, Cran Nerves II-XII Intact ...Motor Strength: WNL Psychiatric: Yes: WNL, Alert, Oriented Labs: CBC, BMP 05/27/16 06:00 INR, PTT INR 0.96 (0.82-1.09) 05/26/16 09:00 - ....Imaging Chest X-ray: Report Reviewed, Image Reviewed EKG: Report Reviewed, Image Reviewed Other: Report Reviewed, Image Reviewed (tele-nsr, pvcs) Problem List - Problems (1) CHF exacerbation Code(s): I50.9 - HEART FAILURE, UNSPECIFIED Qualifiers: Congestive heart failure type: diastolic Qualified Code(s): I50.33 - Acute on chronic diastolic (congestive) heart failure (2) Diabetes Code(s): E11.9 - TYPE 2 DIABETES MELLITUS WITHOUT COMPLICATIONS (3) Hyperlipidemia Code(s): E78.5 - HYPERLIPIDEMIA, UNSPECIFIED (4) Hypertension Code(s): I10 - ESSENTIAL (PRIMARY) HYPERTENSION (5) SOB (shortness of breath) Code(s): R06.02 - SHORTNESS OF BREATH Assessment/Plan 85 year old woman with a history of HTN, HLD, DMII, possible CHF (on lasix at [place] ), prior admission for PNA, admitted with ear pain, throat pain, nasal congestion, and sob that she states started last night, also noted to be hypoxic. SOB-likely multifactorial, URI with mild superimposed acute on chronic CHF ( unknown type) -improving -I/os not recorded -bun/creat up yesterday, f/up repeat today -if again trending up would hold Lasix -would repeat Cxr to re-evaluate for pulm vasc congestion -she does have a murmur on exam, loudest in apex, possible mitral regurgitation with flash pulm edema secondary to uncontrolled HTN -plan for echo tomorrow to evaluate for valvular heart disease -monitor strict I/os and daily weights -URI improving -cardiac enzymes wnl x 2, no ischemia on ekg HTN-adequately controlled for now control -cont norvasc 5mg daily -losartan was reduced to 50mg daily in setting up elevated creat
[2016-05-28 11:55] LABS: CALCIUM 8.1 mg/dL (8.5-10.1); CREATININE 1.4 mg/dL (0.55-1.02)
--- NOTE | 2016-05-28 12:56 | PN ---
Physical Exam: SUBJECTIVE: Patient seen and examined, patient states that she feels better, states her breathing has improved, denies chest pain, sob, dizziness, lightheadedness, swelling in legs OBJECTIVE: Vital Signs Period Temp Pulse Resp BP Sys/[place] Pulse Ox Last 24 Hr 98.0 F-100.2 F 66-80 20-22 113-152/60-78 94 GENERAL: The patient is awake, alert, and fully oriented, in no acute distress. HEAD: Normal with no signs of trauma. ENT: Ears normal, nares patent, oropharynx clear without exudates, moist mucous membranes. LUNGS: Breath sounds equal, clear to auscultation bilaterally, no wheezes, fine crackels present in basal area b/l HEART: Regular [id number] normal. murmur presentin right second intercoastal space ABDOMEN: Soft, nontender, nondistended, normoactive bowel sounds, no guarding, EXTREMITIES: 2+ pulses, warm, well-perfused, no edema. PSYCH: Normal mood, normal affect. SKIN: Warm, dry, normal turgor, no rashes or lesions noted Laboratory Results - last 24 hr 05/27/16 05/27/16 05/28/16 17:26 20:58 05:16 Sodium Potassium Chloride Carbon Dioxide Anion Gap BUN Creatinine POC Glucometer 125 144 155 Random Glucose Calcium 05/28/16 05/28/16 09:35 11:10 Sodium 142 Potassium 4.1 Chloride 105 Carbon Dioxide 30 Anion Gap 7 L BUN 37 H D Creatinine 1.4 H POC Glucometer 220 Random Glucose 259 H D Calcium 8.1 L Active Medications Generic Name Dose Route Start Last Admin Trade Name Nicol PRN Reason Stop Dose Admin Acetaminophen 500 mg 05/27/16 21:27 05/27/16 21:49 Tylenol - PO 500 mg Q6H PRN Administration FEVER OR PAIN Al Hydroxide/Mg Hydroxide 30 ml 05/26/16 12:55 Mylanta Oral Suspension - PO Q6HPO PRN INDIGESTION Albuterol Sulfate 1 amp 05/26/16 10:54 Ventolin 0.083% Nebulizer Soln - NEB Q4H PRN SHORT OF BREATH/WHEEZING Amlodipine Besylate 5 mg 05/27/16 10:00 05/28/16 09:22 Norvasc - PO 5 mg DAILY [facility] Administration Atorvastatin Calcium 20 mg 05/26/16 22:00 05/27/16 21:48 Lipitor - PO 20 mg HS [facility] Administration Furosemide 20 mg 05/27/16 20:52 05/28/16 09:21 Lasix Injection - IVPUSH 20 mg DAILY [facility] Administration Gabapentin 300 mg 05/26/16 14:00 05/28/16 06:12 Neurontin - PO 300 mg TID [facility] Administration Hydrocortisone 1 applic 05/26/16 12:15 05/28/16 09:22 Anusol 2.5% Hc Cream - TP 1 applic DAILY [facility] Administration Insulin Aspart 1 vial 05/26/16 16:30 05/28/16 06:12 Novolog Vial Sliding Scale - SQ 2 units ACHS [facility] Administration Protocol Insulin Detemir 40 units 05/26/16 12:00 05/28/16 09:47 Levemir Vial SQ 40 units DAILY [facility] Administration Losartan Potassium 50 mg 05/27/16 20:52 05/28/16 09:22 Cozaar - PO 50 mg DAILY [facility] Administration Mirtazapine 45 mg 05/26/16 13:15 05/28/16 09:22 Remeron - PO 45 mg DAILY [facility] Administration Tramadol HCl 25 mg 05/27/16 22:00 05/28/16 09:23 Ultram - PO 25 mg BID [facility] Administration Venlafaxine HCl 75 mg 05/27/16 08:00 05/28/16 09:22 Effexor Xr - PO 75 mg DAILY@0800 [facility] Administration Venlafaxine HCl 150 mg 05/27/16 17:30 05/27/16 17:31 Effexor Xr - PO 150 mg DAILY@1730 [facility] Administration Microbiology 05/26/16 08:43 Blood - Peripheral Venous Blood Culture - Preliminary NO GROWTH OBTAINED AFTER 48 HOURS, INCUBATION TO CONTINUE FOR 3 DAYS. 05/26/16 08:43 Blood - Peripheral Venous Blood Culture - Preliminary NO GROWTH OBTAINED AFTER 48 HOURS, INCUBATION TO CONTINUE FOR 3 DAYS. 05/26/16 09:46 Urine - Urine Clean Catch Urine Culture - Final NO GROWTH OBTAINED 05/26/16 09:19 Throat Throat Culture - Final NO BETA HEMOLYTIC STREPTOCOCCI ISOLATED 05/26/16 09:19 Throat Group A Strep Rapid Antigen - Final 05/26/16 09:00 Nasopharyngeal Swab Influenza Types A,B Antigen ([facility]) - Final 05/26/16 09:00 Nasopharyngeal Swab - Final ASSESSMENT/PLAN: Patient is a 85 year old woman with a history of HTN, HLD, DMII , possible CHF (on lasix at [place]), prior admission for PNA, sob that she states started last night, also noted to be hypoxic. # SOB could be URI vs Acute on chronic diastolic/ systolic CHF breathing improved on lasix 20mg iv daily, creat decreased from 1.5 to 1.4 monitor vitals monitor intake and output daily weight on same scale on 2l oxygen spo2 94, started on spirometry follow cxr, and bmp ECHO pending #T2DM on Levemir 40 units (on 50 units of Lantus at [place]), -insulin sliding scale diabetic diet monitor blood sugar # acute Leukocytosis improved UA negative, CXR negative for infection -No growth so far , strep throat culture negative follow the send out #HTN controlled continue with norvasc 5mg daily losartan decreased to 50 mg daily from 100mg due to anish -#ANISH creatnine decreased to 1.4 from 1.5 continue with lasix 20mg daily monitor creat # h/o depression - on on venlafaxine ER dosing AM/PM on mirtazapine DVT Px: Heparin sq bid ,early ambulation, PT fluid : orally allowed electrolyte : follow in am nutrition ; low sodium and diabetic diet dispo; admitted in tele Visit type - Emergency Visit Emergency Visit: Yes ED Registration Date: 05/26/16 Care time: The patient presented to the Emergency Department on the above date and was hospitalized for further evaluation of their emergent condition. - New Patient This patient is new to me today: Yes Date on this admission: 05/28/16 - Critical Care Critical Care patient: No
--- NOTE | 2016-05-28 14:26 | CONSULT ---
Consult Consult Specialty:: Nephrology Reason for Consultation:: CKD - History of Present Illness Chief Complaint: cough History of Present Illness: Pt is an 85 year old female with history of HTN, Chol, CHF and DM who was sent to the hospital from the [place] with cough. She was found to have elevated creatinine and I was called to evaluate her. She denies chest pain or shortness of breath at the moments. She denies history of CKD. She denies dysuria or hematuria. She denies nsaid use. She is on diuretics in the [place]. - History Source History Provided By: Patient, Medical Record Limitations to Obtaining History: Poor Historian - Past Medical History Cardio/Vascular: Yes: HTN, Hyperlipdemia Pulmonary: Yes: Pneumonia Psych: Yes: Depression Endocrine: Yes: Diabetes Mellitus - Past Surgical History Past Surgical History: Yes: Appendectomy, Cholecystectomy, Hysterectomy - Alcohol/Substance Use Hx Alcohol Use: No History of Substance Use: reports: None - Smoking History Smoking history: Never smoked Have you smoked in the past 12 months: No - Social History Usual Living Arrangement: Snf ADL: Support Services Occupation: retired History of Recent Travel: No Home Medications - Allergies Allergies/Adverse Reactions: Allergies Allergy/AdvReac Type Severity Reaction Status Date / Time No Known Allergies Allergy Verified 05/26/16 08:38 - Home Medications Home Medications: Ambulatory Orders Acetaminophen [Tylenol -] 500 mg PO TID 05/26/16 Albuterol Sulfate Inhaler - [Ventolin Hfa Inhaler -] 2 inh PO Q4H PRN 05/26/16 Amlodipine Besylate [Norvasc -] 5 mg PO DAILY 05/26/16 Furosemide [Lasix -] 20 mg PO DAILY 05/26/16 Gabapentin [Neurontin] 300 mg PO TID 05/26/16 Glimepiride 2 mg PO DAILY 05/26/16 Hydrocortisone 2.5% Lotion [Hytone 2.5% Lotion -] 1 applic TP BID 05/26/16 Ibuprofen [Motrin -] 600 mg PO TID 05/26/16 Insulin Glargine,Hum.rec.anlog [Lantus Solostar PEN (NF)] 50 units SQ DAILY Losartan Potassium 100 mg PO DAILY 05/26/16 Mag Hydrox/Al Hydrox/Simeth [Rulox Suspension] 30 ml PO BID PRN 05/26/16 Magnesium Oxide [Magnesium] 400 mg PO BID 05/26/16 Menthol [Bengay Ultra Strength] 1 each TP DAILY 05/26/16 Mirtazapine [Remeron -] 45 mg PO HS 05/26/16 Simvastatin 20 mg PO DAILY 05/26/16 Venlafaxine HCl ER [Effexor Xr -] 75 mg PO DAILY 05/26/16 Venlafaxine HCl ER [Effexor Xr -] 150 mg PO HS 05/26/16 Family Disease History - Family Disease History Family History: Denies Review of Systems - Review of Systems Constitutional: reports: Weakness Eyes: reports: No Symptoms HENT: reports: Ear Pain Neck: reports: No Symptoms Cardiovascular: reports: Edema, Shortness of Breath. denies: Palpitations Respiratory: reports: Cough Gastrointestinal: reports: No Symptoms Genitourinary: reports: No Symptoms Neurological: reports: No Symptoms Endocrine: reports: No Symptoms Hematology/Lymphatic: reports: No Symptoms Psychiatric: reports: No Symptoms Physical Exam Vital Signs: Vital Signs Temperature 98.0 F 05/28/16 10:00 Pulse Rate 67 05/28/16 10:00 Respiratory Rate 20 05/28/16 10:00 Blood Pressure 137/64 05/28/16 10:00 O2 Sat by Pulse Oximetry (%) 96 05/28/16 09:00 Constitutional: Yes: Calm Eyes: Yes: Conjunctiva Clear HENT: Yes: Atraumatic Neck: Yes: Supple Cardiovascular: Yes: S1, S2 Respiratory: Yes: CTA Bilaterally Gastrointestinal: Yes: Soft, Abdomen, Obese Renal/: Yes: WNL Musculoskeletal: Yes: WNL Edema: Yes Edema: LLE: Trace, RLE: Trace Neurological: Yes: Oriented Psychiatric: Yes: Oriented Labs: CBC, BMP 05/27/16 06:00 05/28/16 11:10 Laboratory Tests 08/19/15 08/20/15 08/21/15 06:20 08:20 07:30 WBC Hgb Plt Count Sodium Potassium Chloride Carbon Dioxide Anion Gap BUN Creatinine 1.1 H 1.1 H 1.1 H Urine Color Urine Appearance Urine pH Ur Specific [place] Urine Protein Urine Glucose (UA) Urine Ketones Urine Blood Urine Nitrite Urine Bilirubin Urine Urobilinogen Ur Leukocyte Esterase 08/24/15 10/01/15 10/02/15 06:00 09:30 07:00 WBC Hgb Plt Count Sodium Potassium Chloride Carbon Dioxide Anion Gap BUN Creatinine 1.1 H 1.3 H 1.1 H Urine Color Urine Appearance Urine pH Ur Specific [place] Urine Protein Urine Glucose (UA) Urine Ketones Urine Blood Urine Nitrite Urine Bilirubin Urine Urobilinogen Ur Leukocyte Esterase 10/03/15 10/04/15 05/26/16 06:00 06:00 08:43 WBC 11.7 H Hgb 13.6 Plt Count 281 Sodium Potassium Chloride Carbon Dioxide Anion Gap BUN Creatinine 1.1 H 0.9 Urine Color Urine Appearance Urine pH Ur Specific [place] Urine Protein Urine Glucose (UA) Urine Ketones Urine Blood Urine Nitrite Urine Bilirubin Urine Urobilinogen Ur Leukocyte Esterase 05/26/16 05/26/16 05/27/16 09:00 09:46 06:00 WBC 9.9 Hgb 12.4 Plt Count 277 Sodium Potassium Chloride Carbon Dioxide Anion Gap BUN Creatinine 1.3 H D Urine Color Straw Urine Appearance Clear Urine pH 5.0 Ur Specific [place] 1.009 Urine Protein 2+ H Urine Glucose (UA) Negative Urine Ketones Negative Urine Blood Negative Urine Nitrite Negative Urine Bilirubin Negative Urine Urobilinogen Negative Ur Leukocyte Esterase Negative 05/27/16 05/28/16 06:00 11:10 WBC Hgb Plt Count Sodium 142 Potassium 4.1 Chloride 105 Carbon Dioxide 30 Anion Gap 7 L BUN 37 H D Creatinine 1.5 H 1.4 H Urine Color Urine Appearance Urine pH Ur Specific [place] Urine Protein Urine Glucose (UA) Urine Ketones Urine Blood Urine Nitrite Urine Bilirubin Urine Urobilinogen Ur Leukocyte Esterase Imaging - Results Chest X-ray: Report Reviewed (congestion) Ultrasound: Report Reviewed (no DVT) Problem List - Problems (1) CHF exacerbation Code(s): I50.9 - HEART FAILURE, UNSPECIFIED Qualifiers: Congestive heart failure type: diastolic Qualified Code(s): I50.33 - Acute on chronic diastolic (congestive) heart failure (2) SOB (shortness of breath) Code(s): R06.02 - SHORTNESS OF BREATH (3) Upper respiratory infection Code(s): J06.9 - ACUTE UPPER RESPIRATORY INFECTION, UNSPECIFIED Qualifiers: URI type: unspecified viral URI Qualified Code(s): J06.9 - Acute upper respiratory infection, unspecified; B97.89 - Other viral agents as the cause of diseases classified elsewhere (4) Diabetes Code(s): E11.9 - TYPE 2 DIABETES MELLITUS WITHOUT COMPLICATIONS (5) Hyperlipidemia Code(s): E78.5 - HYPERLIPIDEMIA, UNSPECIFIED (6) Hypertension Code(s): I10 - ESSENTIAL (PRIMARY) HYPERTENSION Assessment/Plan Current Medications Generic Name Dose Route Start Last Admin Trade Name Freq PRN Reason Stop Dose Admin Acetaminophen 500 mg 05/27/16 21:27 05/27/16 21:49 Tylenol - PO 500 mg Q6H PRN Administration FEVER OR PAIN Al Hydroxide/Mg Hydroxide 30 ml 05/26/16 12:55 Mylanta Oral Suspension - PO Q6HPO PRN INDIGESTION Albuterol Sulfate 1 amp 05/26/16 10:54 Ventolin 0.083% Nebulizer Soln - NEB Q4H PRN SHORT OF BREATH/WHEEZING Amlodipine Besylate 5 mg 05/27/16 10:00 05/28/16 09:22 Norvasc - PO 5 mg DAILY A[facility]ER Administration Atorvastatin Calcium 20 mg 05/26/16 22:00 05/27/16 21:48 Lipitor - PO 20 mg HS ASHER Administration Furosemide 20 mg 05/27/16 20:52 05/28/16 09:21 Lasix Injection - IVPUSH 20 mg DAILY ASHER Administration Gabapentin 300 mg 05/26/16 14:00 05/28/16 13:43 Neurontin - PO 300 mg TID ASHER Administration Heparin Sodium (Porcine) 5,000 unit 05/28/16 22:00 Heparin - SQ BID ASHER Hydrocortisone 1 applic 05/26/16 12:15 05/28/16 09:22 Anusol 2.5% Hc Cream - TP 1 applic DAILY A[facility]ER Administration Insulin Aspart 1 vial 05/26/16 16:30 05/28/16 13:46 Novolog Vial Sliding Scale - SQ 4 units ACHS A[facility]ER Administration Protocol Insulin Detemir 40 units 05/26/16 12:00 05/28/16 09:47 Levemir Vial SQ 40 units DAILY A[facility]ER Administration Losartan Potassium 50 mg 05/27/16 20:52 05/28/16 09:22 Cozaar - PO 50 mg DAILY A[facility]ER Administration Mirtazapine 45 mg 05/26/16 13:15 05/28/16 09:22 Remeron - PO 45 mg DAILY A[facility]ER Administration Tramadol HCl 25 mg 05/27/16 22:00 05/28/16 09:23 Ultram - PO 25 mg BID A[facility]ER Administration Venlafaxine HCl 75 mg 05/27/16 08:00 05/28/16 09:22 Effexor Xr - PO 75 mg DAILY@0800 A[facility] Administration Venlafaxine HCl 150 mg 05/27/16 17:30 05/27/16 17:31 Effexor Xr - PO 150 mg DAILY@1730 A[facility] Administration Impression 1. CKD 2. CHF 3. DM 4. hyperlipidemia 5. dyspnea 6.proteinuria Plan - cont current meds - proteinuria can be explained by DM and HTN - will need renal workup which can be done as outpt - pt clinically feels better - check echo - will likely need a higher dose of lasix to keep her euvolemic - check renal ultrasound - cont arb for now Dr Pressley
--- NOTE | 2016-05-28 16:25 | PN ---
Teaching Attending Note Name of Resident: Hima Liz ATTENDING PHYSICIAN STATEMENT I saw and evaluated the patient. I reviewed the resident's note and discussed the case with the resident. I agree with the resident's findings and plan as documented. SUBJECTIVE: no fever or chills. No abd pain , no CP. feels betetr OBJECTIVE: NAD , AAOx3 Lungs: minimal crackles at bases Ext : no edema CV; RRR 2/6 SM at base omar LUSB . , no JVD . Abd : soft, NT, ND , NL BS ASSESSMENT AND PLAN: 85 y/o lady with h/o HTN, DM , HLP , and other medical problems who presented from [facility] with SOB . 1- SOB : hard to figure the cause . no JVD , BNP is , 500, no LE edema , Cxray shows poor inspiration , but has minimal crackles . Acute CHF is possible though omar with symptomatic improvement with diuresis and possible L pleural effusion on cxray and slight hypoxia . there is no infiltrate on cxray . URI usually does not cause SOB or crackles - Cr is stable. cont decreased dose of lasix - Cont BP control - Echo pending - appreciate Card help 2- ANISH on CKD : slightly increased from base line. could be due to prerenal azotemia from CHF - cont decreased dose of ARB - monitor with diuresis . - renal US pending 3- DM : cont insulin 4- DVT px
[2016-05-28] MEDS: ATORVASTATIN CA 20 MG TABLET (FP) PO SCH (21:20)
[2016-05-28] MEDS: HEPARIN NA (PORCINE) 5,000 UNITS/ML 1ML VIAL SQ SCH (21:21)
[2016-05-28] MEDS ORDERED: HEPARIN NA (PORCINE) 5,000 UNITS/ML 1ML VIAL SQ SCH (22:00)
[2016-05-29] MEDS: HEPARIN NA (PORCINE) 5,000 UNITS/ML 1ML VIAL SQ SCH ×3 (05:21→21:29)
[2016-05-29] MEDS: GABAPENTIN 100 MG CAPSULE (FP) PO SCH ×3 (05:21→21:31)
[2016-05-29] MEDS: INSULIN SLIDING SCALE (NOVOLOG) 1 VIAL SQ SCH ×4 (06:14→21:29)
[2016-05-29 08:20] LABS: CALCIUM 8.1 mg/dL (8.5-10.1); CREATININE 1.4 mg/dL (0.55-1.02)
[2016-05-29] MEDS ORDERED: PT OWN MED DRAWER 7, Y5N ONE (08:51)
--- NOTE | 2016-05-29 09:54 | PN ---
Progress Note, Physician Chief Complaint: no acute distress TELE: NSR - Current Medication List Current Medications: Active Medications Acetaminophen (Tylenol -) 500 mg PO Q6H PRN PRN Reason: FEVER OR PAIN Last Admin: 05/27/16 21:49 Dose: 500 mg Al Hydroxide/Mg Hydroxide (Mylanta Oral Suspension -) 30 ml PO Q6HPO PRN PRN Reason: INDIGESTION Albuterol Sulfate (Ventolin 0.083% Nebulizer Soln -) 1 amp NEB Q4H PRN PRN Reason: SHORT OF BREATH/WHEEZING Amlodipine Besylate (Norvasc -) 5 mg PO DAILY [facility] Last Admin: 05/28/16 09:22 Dose: 5 mg Atorvastatin Calcium (Lipitor -) 20 mg PO HS [facility] Last Admin: 05/28/16 21:20 Dose: 20 mg Furosemide (Lasix Injection -) 20 mg IVPUSH DAILY [facility] Last Admin: 05/28/16 09:21 Dose: 20 mg Gabapentin (Neurontin -) 300 mg PO TID [facility] Last Admin: 05/29/16 05:21 Dose: 300 mg Heparin Sodium (Porcine) (Heparin -) 5,000 unit SQ TID [facility] Last Admin: 05/29/16 05:21 Dose: 5,000 unit Hydrocortisone (Anusol 2.5% Hc Cream -) 1 applic TP DAILY [facility] Last Admin: 05/28/16 09:22 Dose: 1 applic Insulin Aspart (Novolog Vial Sliding Scale -) 1 vial SQ ACHS [facility] PRN Reason: Protocol Last Admin: 05/29/16 06:14 Dose: 2 units Insulin Detemir (Levemir Vial) 40 units SQ DAILY [facility] Last Admin: 05/28/16 09:47 Dose: 40 units Losartan Potassium (Cozaar -) 50 mg PO DAILY [facility] Last Admin: 05/28/16 09:22 Dose: 50 mg Mirtazapine (Remeron -) 45 mg PO DAILY [facility] Last Admin: 05/28/16 09:22 Dose: 45 mg Tramadol HCl (Ultram -) 25 mg PO BID [facility] Last Admin: 05/28/16 22:19 Dose: Not Given Venlafaxine HCl (Effexor Xr -) 75 mg PO DAILY@0800 [facility] Last Admin: 05/28/16 09:22 Dose: 75 mg Venlafaxine HCl (Effexor Xr -) 150 mg PO DAILY@1730 [facility] Last Admin: 05/28/16 17:44 Dose: 150 mg - Objective Vital Signs: Vital Signs Temperature 98.2 F 05/29/16 06:00 Pulse Rate 65 05/29/16 06:00 Respiratory Rate 18 05/29/16 06:00 Blood Pressure 131/71 05/29/16 06:00 O2 Sat by Pulse Oximetry (%) 96 05/28/16 21:00 Constitutional: Yes: No Distress Eyes: Yes: Conjunctiva Clear Cardiovascular: Yes: Regular Rate and Rhythm Respiratory: Yes: CTA Bilaterally Gastrointestinal: Yes: Soft (non-tender) Edema: No Neurological: Yes: Alert Labs: CBC, BMP 05/29/16 06:50 INR, PTT INR 0.96 (0.82-1.09) 05/26/16 09:00 - ....Imaging EKG: Other (TELE: NSR) Assessment/Plan Assessment/Plan 85 year old woman with a history of HTN, HLD, DMII, CHF (on lasix at [place]), prior admission for PNA, admitted with ear pain, throat pain, nasal congestion, and sob that she states started last night, also noted to be hypoxic. SOB-likely multifactorial, URI with mild superimposed acute on chronic CHF ( unknown type) -improving -Continue Lasix -repeat CXR with congestive changes -she does have a murmur on exam, loudest in apex, await echo today -cardiac enzymes wnl x 2, no ischemia on ekg HTN-adequately controlled for now control -cont norvasc 5mg daily -losartan was reduced to 50mg daily in setting up elevated creatinine
[2016-05-29] MEDS: LOSARTAN POTASSIUM 50 MG TABLET (FP) PO SCH (11:26)
[2016-05-29] MEDS: HYDROCORTISONE 2.5% TOPICAL CREAM 30 GM TUBE TP SCH (11:26)
[2016-05-29] MEDS: INSULIN DETEMIR 100 UNITS/ML MDV SQ SCH (11:26)
[2016-05-29] MEDS: FUROSEMIDE 40 MG/4 ML INJECTABLE VIAL IVPUSH SCH (11:26)
[2016-05-29] MEDS: VENLAFAXINE HCL 75 MG E.R. CAPSULES (FP) PO SCH ×2 (11:26→19:13)
[2016-05-29] MEDS: traMADol HCL 50 MG TABLET PO SCH ×2 (11:27→21:30)
[2016-05-29] MEDS: MIRTAZAPINE 15 MG TABLET (FP) PO SCH (11:27)
[2016-05-29] MEDS: amLODIPine BESYLATE 5 MG TABLET (FP) PO SCH (11:27)
--- NOTE | 2016-05-29 16:05 | PN ---
Teaching Attending Note Name of Resident: Hima Liz ATTENDING PHYSICIAN STATEMENT I saw and evaluated the patient. I reviewed the resident's note and discussed the case with the resident. I agree with the resident's findings and plan as documented. SUBJECTIVE: no fever or chills , no abd pain . SOB is better OBJECTIVE: NAD , AAOx3 Lungs: minimal crackles at bases Ext : no edema CV; RRR 2/6 SM at base omar LUSB . no JVD . Abd : soft, NT, ND , NL BS ASSESSMENT AND PLAN: 85 y/o lady with h/o HTN, DM , HLP , and other medical problems who presented from [facility] with SOB . 1- Acute D CHF : responding clinically to diuresis - cr has been stable . - eco with nl EF , no WMA - Cont BP control - appreciate Card help - cont diuresis 2- ANISH on CKD : stable - cont decreased dose of ARB - monitor with diuresis . - renal US reviewed. 3- DM : cont insulin 4- DVT Px
--- NOTE | 2016-05-29 16:20 | PN ---
Progress Note, Physician History of Present Illness: Pt seen and examined at bedside. She is awake and alert. She is able to lay flat without shortness of breath. She denies dysuria or hematuria. - Current Medication List Current Medications: Active Medications Acetaminophen (Tylenol -) 500 mg PO Q6H PRN PRN Reason: FEVER OR PAIN Last Admin: 05/27/16 21:49 Dose: 500 mg Al Hydroxide/Mg Hydroxide (Mylanta Oral Suspension -) 30 ml PO Q6HPO PRN PRN Reason: INDIGESTION Albuterol Sulfate (Ventolin 0.083% Nebulizer Soln -) 1 amp NEB Q4H PRN PRN Reason: SHORT OF BREATH/WHEEZING Amlodipine Besylate (Norvasc -) 5 mg PO DAILY [facility] Last Admin: 05/29/16 11:27 Dose: 5 mg Atorvastatin Calcium (Lipitor -) 20 mg PO HS [facility] Last Admin: 05/28/16 21:20 Dose: 20 mg Furosemide (Lasix Injection -) 20 mg IVPUSH DAILY [facility] Last Admin: 05/29/16 11:26 Dose: 20 mg Gabapentin (Neurontin -) 300 mg PO TID [facility] Last Admin: 05/29/16 14:52 Dose: 300 mg Heparin Sodium (Porcine) (Heparin -) 5,000 unit SQ TID [facility] Last Admin: 05/29/16 14:52 Dose: Not Given Hydrocortisone (Anusol 2.5% Hc Cream -) 1 applic TP DAILY [facility] Last Admin: 05/29/16 11:26 Dose: 1 applic Insulin Aspart (Novolog Vial Sliding Scale -) 1 vial SQ ACHS [facility] PRN Reason: Protocol Last Admin: 05/29/16 10:51 Dose: Not Given Insulin Detemir (Levemir Vial) 40 units SQ DAILY [facility] Last Admin: 05/29/16 11:26 Dose: 40 units Losartan Potassium (Cozaar -) 50 mg PO DAILY [facility] Last Admin: 05/29/16 11:26 Dose: 50 mg Mirtazapine (Remeron -) 45 mg PO DAILY [facility] Last Admin: 05/29/16 11:27 Dose: 45 mg Tramadol HCl (Ultram -) 25 mg PO BID [facility] Last Admin: 05/29/16 11:27 Dose: 25 mg Venlafaxine HCl (Effexor Xr -) 75 mg PO DAILY@0800 [facility] Last Admin: 05/29/16 11:26 Dose: 75 mg Venlafaxine HCl (Effexor Xr -) 150 mg PO DAILY@1730 [facility] Last Admin: 05/28/16 17:44 Dose: 150 mg - Objective Vital Signs: Vital Signs Temperature 100.0 F H 05/29/16 14:18 Pulse Rate 74 05/29/16 14:18 Respiratory Rate 18 05/29/16 14:18 Blood Pressure 141/65 05/29/16 14:18 O2 Sat by Pulse Oximetry (%) 96 05/29/16 10:00 Constitutional: Yes: Calm Eyes: Yes: Conjunctiva Clear HENT: Yes: Atraumatic Cardiovascular: Yes: S1, S2 Respiratory: Yes: CTA Bilaterally Gastrointestinal: Yes: Soft, Abdomen, Obese Genitourinary: Yes: WNL Musculoskeletal: Yes: Other (bilateral knee replacements) Edema: Yes Edema: LLE: 1+, RLE: 1+ Neurological: Yes: Oriented Psychiatric: Yes: Oriented Labs: CBC, BMP 05/29/16 06:50 INR, PTT INR 0.96 (0.82-1.09) 05/26/16 09:00 Problem List - Problems (1) CHF exacerbation Code(s): I50.9 - HEART FAILURE, UNSPECIFIED Qualifiers: Congestive heart failure type: diastolic Qualified Code(s): I50.33 - Acute on chronic diastolic (congestive) heart failure (2) SOB (shortness of breath) Code(s): R06.02 - SHORTNESS OF BREATH (3) Upper respiratory infection Code(s): J06.9 - ACUTE UPPER RESPIRATORY INFECTION, UNSPECIFIED Qualifiers: URI type: unspecified viral URI Qualified Code(s): J06.9 - Acute upper respiratory infection, unspecified; B97.89 - Other viral agents as the cause of diseases classified elsewhere (4) Diabetes Code(s): E11.9 - TYPE 2 DIABETES MELLITUS WITHOUT COMPLICATIONS (5) Hyperlipidemia Code(s): E78.5 - HYPERLIPIDEMIA, UNSPECIFIED (6) Hypertension Code(s): I10 - ESSENTIAL (PRIMARY) HYPERTENSION Assessment/Plan Current Medications Generic Name Dose Route Start Last Admin Trade Name Freq PRN Reason Stop Dose Admin Acetaminophen 500 mg 05/27/16 21:27 05/27/16 21:49 Tylenol - PO 500 mg Q6H PRN Administration FEVER OR PAIN Al Hydroxide/Mg Hydroxide 30 ml 05/26/16 12:55 Mylanta Oral Suspension - PO Q6HPO PRN INDIGESTION Albuterol Sulfate 1 amp 05/26/16 10:54 Ventolin 0.083% Nebulizer Soln - NEB Q4H PRN SHORT OF BREATH/WHEEZING Amlodipine Besylate 5 mg 05/27/16 10:00 05/29/16 11:27 Norvasc - PO 5 mg DAILY A[facility]ER Administration Atorvastatin Calcium 20 mg 05/26/16 22:00 05/28/16 21:20 Lipitor - PO 20 mg HS A[facility]ER Administration Furosemide 20 mg 05/27/16 20:52 05/29/16 11:26 Lasix Injection - IVPUSH 20 mg DAILY [facility]ER Administration Gabapentin 300 mg 05/26/16 14:00 05/29/16 14:52 Neurontin - PO 300 mg TID [facility]ER Administration Heparin Sodium (Porcine) 5,000 unit 05/28/16 22:00 05/29/16 14:52 Heparin - SQ Not Given TID [facility] Hydrocortisone 1 applic 05/26/16 12:15 05/29/16 11:26 Anusol 2.5% Hc Cream - TP 1 applic DAILY [facility] Administration Insulin Aspart 1 vial 05/26/16 16:30 05/29/16 10:51 Novolog Vial Sliding Scale - SQ Not Given ACHS [facility] Protocol Insulin Detemir 40 units 05/26/16 12:00 05/29/16 11:26 Levemir Vial SQ 40 units DAILY [facility] Administration Losartan Potassium 50 mg 05/27/16 20:52 05/29/16 11:26 Cozaar - PO 50 mg DAILY [facility]ER Administration Mirtazapine 45 mg 05/26/16 13:15 05/29/16 11:27 Remeron - PO 45 mg DAILY [facility]ER Administration Tramadol HCl 25 mg 05/27/16 22:00 05/29/16 11:27 Ultram - PO 25 mg BID A[facility]ER Administration Venlafaxine HCl 75 mg 05/27/16 08:00 05/29/16 11:26 Effexor Xr - PO 75 mg DAILY@0800 [facility] Administration Venlafaxine HCl 150 mg 05/27/16 17:30 05/28/16 17:44 Effexor Xr - PO 150 mg DAILY@1730 [facility]ER Administration Impression 1. CKD 2. CHF 3. DM 4. hyperlipidemia 5. dyspnea 6.proteinuria Plan - ultrasound reviewed, neg hydro or acute pathology - cont current meds - can keep on cozaar - cont with lasix, can switch to 40 mg PO - echo reviewed - will need outpt follow up - will follow - proteinuria can be explained by DM and HTN Dr Pressley
--- NOTE | 2016-05-29 18:48 | PN ---
Physical Exam: SUBJECTIVE: Patient seen and examined OBJECTIVE: Vital Signs Period Temp Pulse Resp BP Sys/[place] Pulse Ox Last 24 Hr 98.0 F-100.0 F 65-84 18-20 131-166/65-77 96-96 GENERAL: The patient is awake, alert, and fully oriented, in no acute distress. HEAD: Normal with no signs of trauma. ENT: Ears normal, nares patent, oropharynx clear without exudates, moist mucous membranes. LUNGS: Breath sounds equal, clear to auscultation bilaterally, no wheezes, fine crackels present in basal area b/l HEART: Regular [id number] normal. murmur presentin right second intercoastal space ABDOMEN: Soft, nontender, nondistended, normoactive bowel sounds, no guarding, EXTREMITIES: 2+ pulses, warm, well-perfused, no edema. PSYCH: Normal mood, normal affect. SKIN: Warm, dry, normal turgor, no rashes or lesions noted Laboratory Results - last 24 hr 05/28/16 05/28/16 05/29/16 21:17 22:00 05:20 Sodium Potassium Chloride Carbon Dioxide Anion Gap BUN Creatinine POC Glucometer 191 177 Random Glucose Calcium U Random Total Protein 89 H Urine Creatinine 138.0 Protein/Creatinin Ratio 0.644 05/29/16 06:50 Sodium 143 Potassium 4.1 Chloride 107 Carbon Dioxide 28 Anion Gap 8 BUN 39 H Creatinine 1.4 H POC Glucometer Random Glucose 163 H D Calcium 8.1 L U Random Total Protein Urine Creatinine Protein/Creatinin Ratio Active Medications Generic Name Dose Route Start Last Admin Trade Name Freq PRN Reason Stop Dose Admin Acetaminophen 500 mg 05/27/16 21:27 05/27/16 21:49 Tylenol - PO 500 mg Q6H PRN Administration FEVER OR PAIN Al Hydroxide/Mg Hydroxide 30 ml 05/26/16 12:55 Mylanta Oral Suspension - PO Q6HPO PRN INDIGESTION Albuterol Sulfate 1 amp 05/26/16 10:54 Ventolin 0.083% Nebulizer Soln - NEB Q4H PRN SHORT OF BREATH/WHEEZING Amlodipine Besylate 5 mg 05/27/16 10:00 05/29/16 11:27 Norvasc - PO 5 mg DAILY ASHER Administration Atorvastatin Calcium 20 mg 05/26/16 22:00 05/28/16 21:20 Lipitor - PO 20 mg HS ASHER Administration Furosemide 20 mg 05/27/16 20:52 05/29/16 11:26 Lasix Injection - IVPUSH 20 mg DAILY ASHER Administration Gabapentin 300 mg 05/26/16 14:00 05/29/16 14:52 Neurontin - PO 300 mg TID ASHER Administration Heparin Sodium (Porcine) 5,000 unit 05/28/16 22:00 05/29/16 14:52 Heparin - SQ Not Given TID ASHER Hydrocortisone 1 applic 05/26/16 12:15 05/29/16 11:26 Anusol 2.5% Hc Cream - TP 1 applic DAILY ASHER Administration Insulin Aspart 1 vial 05/26/16 16:30 05/29/16 10:51 Novolog Vial Sliding Scale - SQ Not Given ACHS [facility] Protocol Insulin Detemir 40 units 05/26/16 12:00 05/29/16 11:26 Levemir Vial SQ 40 units DAILY ASHER Administration Losartan Potassium 50 mg 05/27/16 20:52 05/29/16 11:26 Cozaar - PO 50 mg DAILY ASHER Administration Mirtazapine 45 mg 05/26/16 13:15 05/29/16 11:27 Remeron - PO 45 mg DAILY ASHER Administration Tramadol HCl 25 mg 05/27/16 22:00 05/29/16 11:27 Ultram - PO 25 mg BID ASHER Administration Venlafaxine HCl 75 mg 05/27/16 08:00 05/29/16 11:26 Effexor Xr - PO 75 mg DAILY@0800 ASHER Administration Venlafaxine HCl 150 mg 05/27/16 17:30 05/28/16 17:44 Effexor Xr - PO 150 mg DAILY@1730 ASHER Administration ASSESSMENT/PLAN: Patient is a 85 year old woman with a history of HTN, HLD, DMII , possible CHF (on lasix at [place]), prior admission for PNA, sob that she states started last night, also noted to be hypoxic. # acute diastolic heart failure breathing improved patient improving on Iv lasix 20mg iv daily daily weight monitoring intake and output monitoring ECHo nl ef, cardiology consult appreciated #T2DM on Levemir 40 units -insulin sliding scale diabetic diet monitor blood sugar #HTN controlled continue with norvasc 5mg daily losartan decreased to 50 mg daily from 100mg due to anish -#ANISH on ckd creatnine stable at 1.4 continue with lasix 20mg daily monitor creat renal usg reviewed # h/o depression - on on venlafaxine ER dosing AM/PM on mirtazapine DVT Px: Heparin sq bid ,early ambulation, PT fluid : orally allowed electrolyte : follow in am nutrition ; low sodium and diabetic diet dispo; admitted in tele Visit type - Emergency Visit Emergency Visit: Yes ED Registration Date: 05/28/16 Care time: The patient presented to the Emergency Department on the above date and was hospitalized for further evaluation of their emergent condition. - New Patient This patient is new to me today: No - Critical Care Critical Care patient: No
[2016-05-29] MEDS: ALBUTEROL SO4 0.083% IH SOL 2.5 MG/3 ML VIAL.NEB. NEB PRN (21:20)
[2016-05-29] MEDS: ATORVASTATIN CA 20 MG TABLET (FP) PO SCH (21:30)
[2016-05-30] MEDS: INSULIN SLIDING SCALE (NOVOLOG) 1 VIAL SQ SCH ×4 (06:05→23:19)
[2016-05-30] MEDS: HEPARIN NA (PORCINE) 5,000 UNITS/ML 1ML VIAL SQ SCH ×3 (06:05→23:18)
[2016-05-30] MEDS: GABAPENTIN 100 MG CAPSULE (FP) PO SCH ×3 (06:05→23:19)
[2016-05-30 08:54] LABS: CALCIUM 8.5 mg/dL (8.5-10.1); CREATININE 1.2 mg/dL (0.55-1.02)
[2016-05-30] MEDS: VENLAFAXINE HCL 75 MG E.R. CAPSULES (FP) PO SCH ×2 (09:09→17:58)
[2016-05-30] MEDS: LOSARTAN POTASSIUM 50 MG TABLET (FP) PO SCH (09:11)
[2016-05-30] MEDS: HYDROCORTISONE 2.5% TOPICAL CREAM 30 GM TUBE TP SCH (09:11)
[2016-05-30] MEDS: FUROSEMIDE 40 MG TABLET (FP) PO SCH (09:11)
[2016-05-30] MEDS: INSULIN DETEMIR 100 UNITS/ML MDV SQ SCH (09:12)
[2016-05-30] MEDS: amLODIPine BESYLATE 5 MG TABLET (FP) PO SCH (09:12)
[2016-05-30] MEDS: MIRTAZAPINE 15 MG TABLET (FP) PO SCH (09:12)
[2016-05-30] MEDS: traMADol HCL 50 MG TABLET PO SCH ×2 (09:13→23:21)
--- NOTE | 2016-05-30 09:31 | PN ---
Physical Exam: SUBJECTIVE: Patient seen and examined, patient states that she feels better. denies chest pain, shortness of breath. Eating her food without oxygen but when checked her spo2 it was at 83 %, patient started back on oxygen and we will get ct chest without contrast OBJECTIVE: Vital Signs Period Temp Pulse Resp BP Sys/[place] Pulse Ox Last 24 Hr 97.6 F-100.0 F 67-84 18-19 140-171/58-88 96-96 GENERAL: The patient is awake, alert, and fully oriented, in no acute distress. HEAD: Normal with no signs of trauma. ENT: Ears normal, nares patent, oropharynx clear without exudates, moist mucous membranes. LUNGS: Breath sounds equal, clear to auscultation bilaterally, no wheezes, fine crackels present in basal area b/l HEART: Regular [id number] normal. murmur presentin right second intercoastal space ABDOMEN: Soft, nontender, nondistended, normoactive bowel sounds, no guarding, EXTREMITIES: 2+ pulses, warm, well-perfused, no edema. PSYCH: Normal mood, normal affect. SKIN: Warm, dry, normal turgor, no rashes or lesions noted Laboratory Results - last 24 hr 05/29/16 05/30/16 05/30/16 21:27 05:49 08:10 Sodium 143 Potassium 4.0 Chloride 105 Carbon Dioxide 30 Anion Gap 8 BUN 35 H Creatinine 1.2 H POC Glucometer 222 169 Random Glucose 140 H Calcium 8.5 Active Medications Generic Name Dose Route Start Last Admin Trade Name Freq PRN Reason Stop Dose Admin Acetaminophen 500 mg 05/27/16 21:27 05/27/16 21:49 Tylenol - PO 500 mg Q6H PRN Administration FEVER OR PAIN Al Hydroxide/Mg Hydroxide 30 ml 05/26/16 12:55 05/29/16 21:32 Mylanta Oral Suspension - PO 30 ml Q6HPO PRN Administration INDIGESTION Albuterol Sulfate 1 amp 05/26/16 10:54 05/29/16 21:20 Ventolin 0.083% Nebulizer Soln - NEB 1 amp Q4H PRN Administration SHORT OF BREATH/WHEEZING Amlodipine Besylate 5 mg 05/27/16 10:00 05/30/16 09:12 Norvasc - PO 5 mg DAILY ASHER Administration Atorvastatin Calcium 20 mg 05/26/16 22:00 05/29/16 21:30 Lipitor - PO 20 mg HS ASHER Administration Furosemide 40 mg 05/30/16 10:00 05/30/16 09:11 Lasix - PO 40 mg DAILY ASHER Administration Gabapentin 300 mg 05/26/16 14:00 05/30/16 06:05 Neurontin - PO 300 mg TID ASHER Administration Heparin Sodium (Porcine) 5,000 unit 05/28/16 22:00 05/30/16 06:05 Heparin - SQ 5,000 unit TID ASHER Administration Hydrocortisone 1 applic 05/26/16 12:15 05/30/16 09:11 Anusol 2.5% Hc Cream - TP 1 applic DAILY ASHER Administration Insulin Aspart 1 vial 05/26/16 16:30 05/30/16 06:05 Novolog Vial Sliding Scale - SQ 2 units ACHS ASHER Administration Protocol Insulin Detemir 40 units 05/26/16 12:00 05/30/16 09:12 Levemir Vial SQ 40 units DAILY ASHER Administration Losartan Potassium 50 mg 05/27/16 20:52 05/30/16 09:11 Cozaar - PO 50 mg DAILY ASHER Administration Mirtazapine 45 mg 05/26/16 13:15 05/30/16 09:12 Remeron - PO 45 mg DAILY ASHER Administration Tramadol HCl 25 mg 05/27/16 22:00 05/30/16 09:13 Ultram - PO 25 mg BID ASHER Administration Venlafaxine HCl 75 mg 05/27/16 08:00 05/30/16 09:09 Effexor Xr - PO 75 mg DAILY@0800 ASHER Administration Venlafaxine HCl 150 mg 05/27/16 17:30 05/29/16 19:13 Effexor Xr - PO 150 mg DAILY@1730 ASHER Administration ASSESSMENT/PLAN: Patient is a 85 year old woman with a history of HTN, HLD, DMII, possible CHF (on lasix at [place]), prior admission for PNA, sob that she states started last night, also noted to be hypoxic. # acute diastolic heart failure breathing improved started on 40mg po lasix please monitor daily weight 91.6 kg please do intake and output monitoring ECHo nl ef, Patient desaturate to 83 without oxygen, will get ct chest without contrast cardiology consult appreciated #T2DM on Levemir 40 units -insulin sliding scale diabetic diet monitor blood sugar #HTN controlled continue with norvasc 5mg daily losartan decreased to 50 mg daily from 100mg due to anish -#ANISH on ckd creatnine decreased to 1.2 continue with lasix 40mg po daily monitor creat renal usg reviewed # h/o depression - on on venlafaxine ER dosing AM/PM on mirtazapine DVT Px: Heparin sq bid ,early ambulation, PT fluid : orally allowed electrolyte : follow in am nutrition ; low sodium and diabetic diet physical therapy request and respiratory therapy request for pre and post dispo; admitted in tele Visit type - Emergency Visit Emergency Visit: Yes ED Registration Date: 05/28/16 Care time: The patient presented to the Emergency Department on the above date and was hospitalized for further evaluation of their emergent condition. - New Patient This patient is new to me today: No - Critical Care Critical Care patient: No
--- NOTE | 2016-05-30 10:01 | PN ---
Progress Note, Physician Chief Complaint: moderate MR Mild aortic root dilatation Feels well History of Present Illness: TELE: short self limited PSVT - Current Medication List Current Medications: Active Medications Acetaminophen (Tylenol -) 500 mg PO Q6H PRN PRN Reason: FEVER OR PAIN Last Admin: 05/27/16 21:49 Dose: 500 mg Al Hydroxide/Mg Hydroxide (Mylanta Oral Suspension -) 30 ml PO Q6HPO PRN PRN Reason: INDIGESTION Last Admin: 05/29/16 21:32 Dose: 30 ml Albuterol Sulfate (Ventolin 0.083% Nebulizer Soln -) 1 amp NEB Q4H PRN PRN Reason: SHORT OF BREATH/WHEEZING Last Admin: 05/29/16 21:20 Dose: 1 amp Amlodipine Besylate (Norvasc -) 5 mg PO DAILY [facility] Last Admin: 05/30/16 09:12 Dose: 5 mg Atorvastatin Calcium (Lipitor -) 20 mg PO HS [facility] Last Admin: 05/29/16 21:30 Dose: 20 mg Furosemide (Lasix -) 40 mg PO DAILY [facility] Last Admin: 05/30/16 09:11 Dose: 40 mg Gabapentin (Neurontin -) 300 mg PO TID [facility] Last Admin: 05/30/16 06:05 Dose: 300 mg Heparin Sodium (Porcine) (Heparin -) 5,000 unit SQ TID [facility] Last Admin: 05/30/16 06:05 Dose: 5,000 unit Hydrocortisone (Anusol 2.5% Hc Cream -) 1 applic TP DAILY [facility] Last Admin: 05/30/16 09:11 Dose: 1 applic Insulin Aspart (Novolog Vial Sliding Scale -) 1 vial SQ ACHS [facility] PRN Reason: Protocol Last Admin: 05/30/16 06:05 Dose: 2 units Insulin Detemir (Levemir Vial) 40 units SQ DAILY [facility] Last Admin: 05/30/16 09:12 Dose: 40 units Losartan Potassium (Cozaar -) 50 mg PO DAILY [facility] Last Admin: 05/30/16 09:11 Dose: 50 mg Mirtazapine (Remeron -) 45 mg PO DAILY [facility] Last Admin: 05/30/16 09:12 Dose: 45 mg Tramadol HCl (Ultram -) 25 mg PO BID [facility] Last Admin: 05/30/16 09:13 Dose: 25 mg Venlafaxine HCl (Effexor Xr -) 75 mg PO DAILY@0800 [facility] Last Admin: 05/30/16 09:09 Dose: 75 mg Venlafaxine HCl (Effexor Xr -) 150 mg PO DAILY@1730 [facility] Last Admin: 05/29/16 19:13 Dose: 150 mg - Objective Vital Signs: Vital Signs Temperature 99.0 F 05/30/16 09:23 Pulse Rate 73 05/30/16 09:23 Respiratory Rate 19 05/30/16 09:23 Blood Pressure 145/78 05/30/16 09:23 O2 Sat by Pulse Oximetry (%) 96 05/29/16 21:00 Constitutional: Yes: No Distress Eyes: Yes: Conjunctiva Clear Cardiovascular: Yes: Regular Rate and Rhythm Respiratory: Yes: CTA Bilaterally Gastrointestinal: Yes: Soft Edema: No Neurological: Yes: Alert Labs: CBC, BMP 05/30/16 08:10 INR, PTT INR 0.96 (0.82-1.09) 05/26/16 09:00 - ....Imaging EKG: Image Reviewed Assessment/Plan Assessment/Plan 85 year old woman with a history of HTN, HLD, DMII, CHF (on [place]ix at [place]), prior admission for PNA, admitted with ear pain, throat pain, nasal congestion, and sob that she states started last night, also noted to be hypoxic. SOB-likely multifactorial, URI with mild superimposed acute on chronic CHF ( diastolic) -improving -Continue Lasix -she does have a murmur on exam,consistent with moderate MR -cardiac enzymes wnl x 2, no ischemia on ekg PSVT- self limited, but with mild aortic root dilatation initiation of beta blockers is indicated. Aortic root dilatation- -start Beta [place] -Would image again in 6 months and consider outpatient CT to assess aortic arch and descending thoracic aorta
[2016-05-30] MEDS: ALBUTEROL SO4 0.083% IH SOL 2.5 MG/3 ML VIAL.NEB. NEB PRN (10:14)
[2016-05-30] MEDS ORDERED: INSULIN (NOVOLOG) ASPART 100 UNITS/ML 10ML VIAL ONE (12:19)
--- NOTE | 2016-05-30 14:07 | PN ---
Progress Note, Physician History of Present Illness: Pt seen and examined at bedside. She feels better today. She is out of bed to chair. She also feels that her legs are improved. - Current Medication List Current Medications: Active Medications Acetaminophen (Tylenol -) 500 mg PO Q6H PRN PRN Reason: FEVER OR PAIN Last Admin: 05/27/16 21:49 Dose: 500 mg Al Hydroxide/Mg Hydroxide (Mylanta Oral Suspension -) 30 ml PO Q6HPO PRN PRN Reason: INDIGESTION Last Admin: 05/29/16 21:32 Dose: 30 ml Albuterol Sulfate (Ventolin 0.083% Nebulizer Soln -) 1 amp NEB Q4H PRN PRN Reason: SHORT OF BREATH/WHEEZING Last Admin: 05/30/16 10:14 Dose: 1 amp Amlodipine Besylate (Norvasc -) 5 mg PO DAILY [facility] Last Admin: 05/30/16 09:12 Dose: 5 mg Atorvastatin Calcium (Lipitor -) 20 mg PO HS [facility] Last Admin: 05/29/16 21:30 Dose: 20 mg Furosemide (Lasix -) 40 mg PO DAILY [facility] Last Admin: 05/30/16 09:11 Dose: 40 mg Gabapentin (Neurontin -) 300 mg PO TID [facility] Last Admin: 05/30/16 13:54 Dose: 300 mg Heparin Sodium (Porcine) (Heparin -) 5,000 unit SQ TID [facility] Last Admin: 05/30/16 13:55 Dose: 5,000 unit Hydrocortisone (Anusol 2.5% Hc Cream -) 1 applic TP DAILY [facility] Last Admin: 05/30/16 09:11 Dose: 1 applic Insulin Aspart (Novolog Vial Sliding Scale -) 1 vial SQ ACHS [facility] PRN Reason: Protocol Last Admin: 05/30/16 12:22 Dose: 2 units Insulin Detemir (Levemir Vial) 40 units SQ DAILY [facility] Last Admin: 05/30/16 09:12 Dose: 40 units Losartan Potassium (Cozaar -) 50 mg PO DAILY [facility] Last Admin: 05/30/16 09:11 Dose: 50 mg Mirtazapine (Remeron -) 45 mg PO DAILY [facility] Last Admin: 05/30/16 09:12 Dose: 45 mg Tramadol HCl (Ultram -) 25 mg PO BID [facility] Last Admin: 01/04/17 09:13 Dose: 25 mg Venlafaxine HCl (Effexor Xr -) 75 mg PO DAILY@0800 [facility] Last Admin: 05/30/16 09:09 Dose: 75 mg Venlafaxine HCl (Effexor Xr -) 150 mg PO DAILY@1730 [facility] Last Admin: 05/29/16 19:13 Dose: 150 mg - Objective Vital Signs: Vital Signs Temperature 97.7 F 05/30/16 13:48 Pulse Rate 56 L 05/30/16 13:48 Respiratory Rate 18 05/30/16 13:48 Blood Pressure 130/52 05/30/16 13:48 O2 Sat by Pulse Oximetry (%) 77 L 05/30/16 09:55 Constitutional: Yes: Calm Eyes: Yes: Conjunctiva Clear HENT: Yes: Atraumatic Neck: Yes: Supple Cardiovascular: Yes: S1, S2 Respiratory: Yes: On Nasal O2, Wheezes Gastrointestinal: Yes: Soft, Abdomen, Obese Genitourinary: Yes: WNL Musculoskeletal: Yes: Other (bilateral knee replacements) Edema: Yes Edema: LLE: Trace, RLE: Trace Neurological: Yes: Oriented Psychiatric: Yes: Oriented Labs: CBC, BMP 05/30/16 08:10 INR, PTT INR 0.96 (0.82-1.09) 05/26/16 09:00 Problem List - Problems (1) CHF exacerbation Code(s): I50.9 - HEART FAILURE, UNSPECIFIED Qualifiers: Congestive heart failure type: diastolic Qualified Code(s): I50.33 - Acute on chronic diastolic (congestive) heart failure (2) SOB (shortness of breath) Code(s): R06.02 - SHORTNESS OF BREATH (3) Upper respiratory infection Code(s): J06.9 - ACUTE UPPER RESPIRATORY INFECTION, UNSPECIFIED Qualifiers: URI type: unspecified viral URI Qualified Code(s): J06.9 - Acute upper respiratory infection, unspecified; B97.89 - Other viral agents as the cause of diseases classified elsewhere (4) Diabetes Code(s): E11.9 - TYPE 2 DIABETES MELLITUS WITHOUT COMPLICATIONS (5) Hyperlipidemia Code(s): E78.5 - HYPERLIPIDEMIA, UNSPECIFIED (6) Hypertension Code(s): I10 - ESSENTIAL (PRIMARY) HYPERTENSION Assessment/Plan Current Medications Generic Name Dose Route Start Last Admin Trade Name Freq PRN Reason Stop Dose Admin Acetaminophen 500 mg 05/27/16 21:27 05/27/16 21:49 Tylenol - PO 500 mg Q6H PRN Administration FEVER OR PAIN Al Hydroxide/Mg Hydroxide 30 ml 05/26/16 12:55 05/29/16 21:32 Mylanta Oral Suspension - PO 30 ml Q6HPO PRN Administration INDIGESTION Albuterol Sulfate 1 amp 05/26/16 10:54 05/30/16 10:14 Ventolin 0.083% Nebulizer Soln - NEB 1 amp Q4H PRN Administration SHORT OF BREATH/WHEEZING Amlodipine Besylate 5 mg 05/27/16 10:00 05/30/16 09:12 Norvasc - PO 5 mg DAILY ASHER Administration Atorvastatin Calcium 20 mg 05/26/16 22:00 05/29/16 21:30 Lipitor - PO 20 mg HS ASHER Administration Furosemide 40 mg 05/30/16 10:00 05/30/16 09:11 Lasix - PO 40 mg DAILY ASHER Administration Gabapentin 300 mg 05/26/16 14:00 05/30/16 13:54 Neurontin - PO 300 mg TID ASHER Administration Heparin Sodium (Porcine) 5,000 unit 05/28/16 22:00 05/30/16 13:55 Heparin - SQ 5,000 unit TID ASHER Administration Hydrocortisone 1 applic 05/26/16 12:15 05/30/16 09:11 Anusol 2.5% Hc Cream - TP 1 applic DAILY ASHER Administration Insulin Aspart 1 vial 05/26/16 16:30 05/30/16 12:22 Novolog Vial Sliding Scale - SQ 2 units ACHS ASHER Administration Protocol Insulin Detemir 40 units 05/26/16 12:00 05/30/16 09:12 Levemir Vial SQ 40 units DAILY ASHER Administration Losartan Potassium 50 mg 05/27/16 20:52 05/30/16 09:11 Cozaar - PO 50 mg DAILY ASHER Administration Mirtazapine 45 mg 05/26/16 13:15 05/30/16 09:12 Remeron - PO 45 mg DAILY ASHER Administration Tramadol HCl 25 mg 05/27/16 22:00 05/30/16 09:13 Ultram - PO 25 mg BID ASHER Administration Venlafaxine HCl 75 mg 05/27/16 08:00 05/30/16 09:09 Effexor Xr - PO 75 mg DAILY@0800 [facility] Administration Venlafaxine HCl 150 mg 05/27/16 17:30 05/29/16 19:13 Effexor Xr - PO 150 mg DAILY@1730 ASHER Administration Impression 1. CKD 2. CHF 3. DM 4. hyperlipidemia 5. dyspnea 6.proteinuria Plan - cont with PO lasix - SOB is likely multifactorial - renal function is improving - cont nayana - monitor bp - will need outpt follow up - will follow - proteinuria can be explained by DM and HTN Dr Pressley
[2016-05-30] MEDS: ATORVASTATIN CA 20 MG TABLET (FP) PO SCH (23:19)
[2016-05-31] MEDS: INSULIN SLIDING SCALE (NOVOLOG) 1 VIAL SQ SCH ×2 (06:51→12:29)
[2016-05-31] MEDS: HEPARIN NA (PORCINE) 5,000 UNITS/ML 1ML VIAL SQ SCH ×2 (06:51→13:18)
[2016-05-31] MEDS: GABAPENTIN 100 MG CAPSULE (FP) PO SCH ×2 (06:51→13:18)
[2016-05-31 07:23] LABS: CALCIUM 8.6 mg/dL (8.5-10.1); CREATININE 1.2 mg/dL (0.55-1.02)
[2016-05-31 07:34] LABS: BASOPHIL 1.1 % (0-2.0); EOSINOPHIL 3.4 % (0-4.5); MCH 29.3 pg (25.7-33.7); MCHC 33.3 g/dl (32.0-36.0); MEAN CELL VOLUME 88.1 fl (80-96); MEAN PLT VOLUME 9.7 fl (7.5-11.1); NEUTROPHILS 57.6 % (42.8-82.8); PLATELET COUNT 221 K/MM3 (134-434); RDW 13.4 % (11.6-15.6); WHITE BLOOD COUNT 8.7 K/mm3 (4.0-10.0)
[2016-05-31] MEDS: VENLAFAXINE HCL 75 MG E.R. CAPSULES (FP) PO SCH (09:02)
[2016-05-31] MEDS: INSULIN DETEMIR 100 UNITS/ML MDV SQ SCH (09:02)
[2016-05-31] MEDS: LOSARTAN POTASSIUM 50 MG TABLET (FP) PO SCH (09:03)
[2016-05-31] MEDS: amLODIPine BESYLATE 5 MG TABLET (FP) PO SCH (09:03)
[2016-05-31] MEDS: traMADol HCL 50 MG TABLET PO SCH (09:03)
[2016-05-31] MEDS: FUROSEMIDE 40 MG TABLET (FP) PO SCH (09:03)
[2016-05-31] MEDS: MIRTAZAPINE 15 MG TABLET (FP) PO SCH (09:03)
[2016-05-31] MEDS: HYDROCORTISONE 2.5% TOPICAL CREAM 30 GM TUBE TP SCH (09:04)
--- NOTE | 2016-05-31 10:19 | PN ---
Progress Note, Physician Chief Complaint: feels well TELE: reviewed. NSR - Current Medication List Current Medications: Active Medications Acetaminophen (Tylenol -) 500 mg PO Q6H PRN PRN Reason: FEVER OR PAIN Last Admin: 05/27/16 21:49 Dose: 500 mg Al Hydroxide/Mg Hydroxide (Mylanta Oral Suspension -) 30 ml PO Q6HPO PRN PRN Reason: INDIGESTION Last Admin: 05/29/16 21:32 Dose: 30 ml Albuterol Sulfate (Ventolin 0.083% Nebulizer Soln -) 1 amp NEB Q4H PRN PRN Reason: SHORT OF BREATH/WHEEZING Last Admin: 05/30/16 10:14 Dose: 1 amp Amlodipine Besylate (Norvasc -) 5 mg PO DAILY [facility] Last Admin: 05/31/16 09:03 Dose: 5 mg Atorvastatin Calcium (Lipitor -) 20 mg PO HS [facility] Last Admin: 05/30/16 23:19 Dose: 20 mg Furosemide (Lasix -) 40 mg PO DAILY [facility] Last Admin: 05/31/16 09:03 Dose: 40 mg Gabapentin (Neurontin -) 300 mg PO TID [facility] Last Admin: 05/31/16 06:51 Dose: 300 mg Heparin Sodium (Porcine) (Heparin -) 5,000 unit SQ TID [facility] Last Admin: 05/31/16 06:51 Dose: 5,000 unit Hydrocortisone (Anusol 2.5% Hc Cream -) 1 applic TP DAILY [facility] Last Admin: 05/31/16 09:04 Dose: 1 applic Insulin Aspart (Novolog Vial Sliding Scale -) 1 vial SQ ACHS [facility] PRN Reason: Protocol Last Admin: 05/31/16 06:51 Dose: 2 units Insulin Detemir (Levemir Vial) 40 units SQ DAILY [facility] Last Admin: 05/31/16 09:02 Dose: 40 units Losartan Potassium (Cozaar -) 50 mg PO DAILY [facility] Last Admin: 05/31/16 09:03 Dose: 50 mg Mirtazapine (Remeron -) 45 mg PO DAILY [facility] Last Admin: 05/31/16 09:03 Dose: 45 mg Tramadol HCl (Ultram -) 25 mg PO BID [facility] Last Admin: 05/31/16 09:03 Dose: 25 mg Venlafaxine HCl (Effexor Xr -) 75 mg PO DAILY@0800 [facility] Last Admin: 05/31/16 09:02 Dose: 75 mg Venlafaxine HCl (Effexor Xr -) 150 mg PO DAILY@1730 [facility] Last Admin: 05/30/16 17:58 Dose: 150 mg - Objective Vital Signs: Vital Signs Temperature 98.2 F 05/31/16 09:10 Pulse Rate 69 05/31/16 09:10 Respiratory Rate 18 05/31/16 09:10 Blood Pressure 127/66 05/31/16 09:10 O2 Sat by Pulse Oximetry (%) 94 L 05/30/16 21:00 Constitutional: Yes: No Distress Cardiovascular: Yes: Regular Rate and Rhythm Respiratory: Yes: CTA Bilaterally (clear anteriorly.) Gastrointestinal: Yes: Soft, Abdomen, Obese (non-tender) Edema: No Neurological: Yes: Alert Labs: CBC, BMP 05/31/16 06:00 05/31/16 06:00 INR, PTT INR 0.96 (0.82-1.09) 05/26/16 09:00 Microbiology 05/26/16 09:19 Throat Throat Culture - Final 05/26/16 09:19 Throat Group A Strep Rapid Antigen - Final NO BETA HEMOLYTIC STREPTOCOCCI ISOLATED 05/26/16 09:00 Nasopharyngeal Swab Influenza Types A,B Antigen (AMADA) - Final 05/26/16 09:00 Nasopharyngeal Swab - Final 05/26/16 08:43 Blood - Peripheral Venous Blood Culture - Final NO GROWTH AFTER 5 DAYS INCUBATION 05/26/16 08:43 Blood - Peripheral Venous Blood Culture - Final NO GROWTH AFTER 5 DAYS INCUBATION 05/26/16 08:43 Blood - Peripheral Venous Blood Culture - Preliminary NO GROWTH OBTAINED AFTER 96 HOURS, INCUBATION TO CONTINUE FOR 1 DAYS. 05/26/16 08:43 Blood - Peripheral Venous Blood Culture - Preliminary NO GROWTH OBTAINED AFTER 96 HOURS, INCUBATION TO CONTINUE FOR 1 DAYS. Laboratory Tests 05/26/16 05/30/16 05/31/16 09:00 08:10 06:00 WBC 8.7 Hgb 11.5 Plt Count 221 D Sodium Potassium 4.0 BUN Creatinine 1.2 H RSV Ag Report Status Negative 05/31/16 06:00 WBC Hgb Plt Count Sodium 143 Potassium 4.3 BUN 32 H Creatinine 1.2 H RSV Ag Report Status - ....Imaging EKG: Image Reviewed Assessment/Plan Assessment/Plan 85 year old woman with a history of HTN, HLD, DMII, CHF (on [place]ix at [place]), prior admission for PNA, admitted with ear pain, throat pain, nasal congestion, and sob. SOB-likely multifactorial, URI with mild superimposed acute on chronic CHF ( diastolic) -improving -Continue Lasix -she does have a murmur on exam,consistent with moderate MR -cardiac enzymes wnl x 2, no ischemia on ekg PSVT- self limited, no recurrence. Aortic root dilatation- -beta jorge held due to episode of bradycardia that occurred this admission while off O2. -Would image again in 6 months and consider outpatient CT to assess aortic arch and descending thoracic aorta -BP largely controlled on current agents.
--- NOTE | 2016-05-31 14:01 | DS ---
Physical Exam: SUBJECTIVE: Patient seen and examined OBJECTIVE: Vital Signs Period Temp Pulse Resp BP Sys/[place] Pulse Ox Last 24 Hr 97.8 F-98.3 F 64-75 18-18 127-163/57-84 93-95 PHYSICAL EXAM GENERAL: The patient is awake, alert, and fully oriented, in no acute distress. HEAD: Normal with no signs of trauma. ENT: Ears normal, nares patent, moist mucous membranes. LUNGS: Breath sounds equal, clear to auscultation bilaterally, no wheezes, fine crackels present in basal area b/l HEART: Regular [id number] normal. murmur presenti n right second intercoastal space ABDOMEN: Soft, nontender, nondistended, normoactive bowel sounds, no guarding, EXTREMITIES: 2+ pulses, warm, well-perfused, no edema. PSYCH: Normal mood, normal affect. LABS Laboratory Results - last 24 hr 05/30/16 05/30/16 05/31/16 17:59 21:26 06:00 WBC 8.7 RBC 3.93 Hgb 11.5 Hct 34.6 MCV 88.1 MCHC 33.3 RDW 13.4 Plt Count 221 D MPV 9.7 Neutrophils % 57.6 D Lymphocytes % 26.5 D Monocytes % 11.4 H Eosinophils % 3.4 Basophils % 1.1 Sodium Potassium Chloride Carbon Dioxide Anion Gap BUN Creatinine POC Glucometer 172 185 Random Glucose Calcium 05/31/16 05/31/16 05/31/16 06:00 06:15 11:45 WBC RBC Hgb Hct MCV MCHC RDW Plt Count MPV Neutrophils % Lymphocytes % Monocytes % Eosinophils % Basophils % Sodium 143 Potassium 4.3 Chloride 104 Carbon Dioxide 30 Anion Gap 9 BUN 32 H Creatinine 1.2 H POC Glucometer 158 181 Random Glucose 159 H Calcium 8.6 CBCD WBC 8.7 K/mm3 (4.0-10.0) 05/31/16 06:00 RBC 3.93 M/mm3 (3.60-5.2) 05/31/16 06:00 Hgb 11.5 GM/dL (10.7-15.3) 05/31/16 06:00 Hct 34.6 % (32.4-45.2) 05/31/16 06:00 MCV 88.1 fl (80-96) 05/31/16 06:00 MCHC 33.3 g/dl (32.0-36.0) 05/31/16 06:00 RDW 13.4 % (11.6-15.6) 05/31/16 06:00 Plt Count 221 K/MM3 (134-434) D 05/31/16 06:00 MPV 9.7 fl (7.5-11.1) 05/31/16 06:00 CMP Sodium 143 mmol/L (136-145) 05/31/16 06:00 Potassium 4.3 mmol/L (3.5-5.1) 05/31/16 06:00 Chloride 104 mmol/L (98-107) 05/31/16 06:00 Carbon Dioxide 30 mmol/L (21-32) 05/31/16 06:00 Anion Gap 9 (8-16) 05/31/16 06:00 BUN 32 mg/dL (7-18) H 05/31/16 06:00 Creatinine 1.2 mg/dL (0.55-1.02) H 05/31/16 06:00 Creat Clearance w eGFR 38.84 (>60) 05/26/16 09:00 Random Glucose 159 mg/dL (74-106) H 05/31/16 06:00 Calcium 8.6 mg/dL (8.5-10.1) 05/31/16 06:00 Total Bilirubin 0.5 mg/dL (0.2-1.0) D 05/26/16 09:00 AST 28 U/L (15-37) D 05/26/16 09:00 ALT 23 U/L (12-78) D 05/26/16 09:00 Alkaline Phosphatase 95 U/L (45-117) 05/26/16 09:00 Total Protein 8.4 g/dl (6.4-8.2) H 05/26/16 09:00 Albumin 3.8 g/dl (3.4-5.0) D 05/26/16 09:00 CARDIAC ENZYMES Creatine Kinase 86 IU/L (26-192) 05/26/16 09:00 Troponin I < 0.02 ng/ml (0.00-0.05) 05/26/16 15:30 CT chest : There is poor inspiratory effort with moderate right lower lobe and mild left lower lobe subsegmental atelectatic changes. There is a 4 mm left lower lobe pleural-based nodule (axial image 42). There is no pleural effusion or pneumothorax. The trachea and central bronchi tree are patent with no evidence of endoluminal filling defects. Evaluation of the bernadine is limited due to lack of IV contrast. No enlarged mediastinal or axillary adenopathy is CT size criteria seen. There is cardiomegaly. There is no pericardial effusion. Coronary vascular calcification seen. The pulmonary trunk is dilated measuring 3.6 cm in diameter. The ascending thoracic aorta is dilated measuring 4.3 cm in diameter. There is moderate aortic arch and descending thoracic mural calcifications. The thyroid gland is heterogeneous with a large left lower lobe nodule measuring approximately 4 to 5 cm in with substernal extension. 4 mm right hepatic lobe calcified granuloma is seen. The patient is status post cholecystectomy. There is a poorly defined faint splenic hypodensity measuring 2.2 cm. There is no gross destructive bony lesion. There is diffuse bony osteopenia. Multilevel thoracic spine productive changes seen. There is severe right shoulder joint degenerative changes. IMPRESSION: Poor inspiratory effort with low lung volumes and moderate right and mild left lower lobe subsegmental atelectasis. Early infiltrate cannot be excluded and clinical correlation is needed. 4 mm left lower lobe pleural-based nodule. Follow-up CT scan in 12 months is suggested. Dilated pulmonary trunk at 3.6 cm suggestive of increased pulmonary arterial pressure Dilated ascending aorta at 4.3 cm. Coronary vascular calcifications. Cardiomegaly. Heterogeneous thyroid gland containing a 4 to 5 cm left thyroid lobe nodule with substernal extension further evaluation with thyroid ultrasound is suggested. Status post cholecystectomy. Poorly defined 2.2 cm splenic hypodensity of unclear etiology. This can be further evaluated with MRI without and with IV gadolinium. Severe right shoulder degenerative changes. Renal usg; no evidence of acute pathology or hydonephrosis ECHO ; LV is normal in size, LV systolic function is normal, no regional wall motion abnormality, mild mitral annular calcification, moderate MR, mild tr, right ventricle systolic pressure is elevated 30-40mhg, mild aortic sclerosis, mild aortic root dilatation, no pericardial effusion HOSPITAL COURSE: 85 year old woman with a history of HTN, HLD, DMII, CHF (on lasix at [place]), prior admission for PNA, came to hospital with complain throat pain, nasal congestion, and sob that she states started last night, also noted to be hypoxic. Examination and investigations were done and patient was found to be sob, werner. SOB-likely multifactorial, URI with mild superimposed acute on chronic CHF (diastolic), ECHO was don report mentioned above, patient started on IV lasix 20mg and as breathing improved patient started on po lasix 40mg. Patienthas an episode of bradycardia in hospital so betablocker was stopped and patient blooed pressure was controlled with norvasc 5mg daily and losartan 50 mg daily. Patient also found to have werner could be pre renal and creatnine decreased from 1.5 to 1.2. Patient is maintaining a saturation of 95% on 3 L, Ct scan of chest was done and report is mentioned above. Today patient feels better, denies sob, chest pain, dizziness. Patient discharged to rehab in stable condition on oxygen. Advice Follow up with [facility] Follow u p with Dr de souza for further management of kidney Follow up with caustic mixer Dr martel Follow up with Dr abreu in view of nodule in lung Follow up with endocrinilogist in view of nodule in thyroid take all the medications as prescribed you have nodule in your lung for which you need to regular follow up with pulverizing and sifting operator You have noduke in thyroid for which you need regular follow up with shield runner You gave dialated ascending aorta for which you need regular follow up with caustic mixer Do spirometry You have been discharged to rehab on oxygen. She is on 3L oxygen TRy to get out of bed and stay in chair or walk as much as possible we had stopped your beta jorge due to episode of bradycardia in hospital we had increased your lasix to 40mg daily If develop nause, vomiting, chest pain, shortness of breath contact doctor or come to hospital Date of Admission:05/28/16 Date of Discharge: 05/31/16 Minutes to complete discharge: 45 Discharge Summary Reason For Visit: CHF EXACERBATION,URI Current Active Problems CHF exacerbation (Acute) SOB (shortness of breath) (Acute) Upper respiratory infection (Acute) Condition: Stable - Instructions Diet, Activity, Other Instructions: Follow up with [facility] pcp Follow u p with Dr de souza for further management of kidney Follow up with caustic mixer Dr martel Follow up with Dr abreu in view of nodule in lung Follow up with endocrinilogist in view of nodule in thyroid take all the medications as prescribed you have nodule in your lung for which you need to regular follow up with pulverizing and sifting operator You have noduke in thyroid for which you need regular follow up with shield runner You gave dialated ascending aorta for which you need regular follow up with caustic mixer Do spirometry You have been discharged to rehab on oxygen. She is on 3L oxygen TRy to get out of bed and stay in chair or walk as much as possible we had stopped your beta jorge due to episode of bradycardia in hospital we had increased your lasix to 40mg daily If develop nause, vomiting, chest pain, shortness of breath contact doctor or come to hospital Referrals: Bashir Abreu MD [Staff Physician] - 1 Week Ethan Martel MD [Staff Physician] - 1 Week Ab Dykes [Primary Care Provider] - 1 Week Polo Pressley MD [Staff Physician] - 1 Week Diogenes Remy MD [Staff Physician] - 1 Week Disposition: [facility] FACILITY - Home Medications Comprehensive Discharge Medication List: Ambulatory Orders Albuterol Sulfate Inhaler - [Ventolin HFA Inhaler -] 2 inh PO Q4H PRN 05/26/16 Amlodipine Besylate [Norvasc -] 5 mg PO DAILY 05/26/16 Gabapentin [Neurontin] 300 mg PO TID 05/26/16 Glimepiride 2 mg PO DAILY 05/26/16 Hydrocortisone 2.5% Lotion [Hytone 2.5% Lotion -] 1 applic TP BID 05/26/16 Insulin Glargine,Hum.rec.anlog [Lantus Solostar PEN -] 50 units SQ DAILY Mag Hydrox/Al Hydrox/Simeth [Rulox Suspension] 30 ml PO BID PRN 05/26/16 Mirtazapine [Remeron -] 45 mg PO HS 05/26/16 Venlafaxine HCl ER [Effexor Xr -] 75 mg PO DAILY 05/26/16 Venlafaxine HCl ER [Effexor Xr -] 150 mg PO HS 05/26/16 Acetaminophen [Tylenol .Extra-Strength -] 500 mg PO TID PRN #0 MDD 3 05/31/16 Albuterol 0.083% Nebulizer Aliza [Ventolin 0.083% Nebulizer Soln -] 1 amp NEB Q4H PRN #0 amp 05/31/16 Atorvastatin Ca [Lipitor] 20 mg PO HS tablet 05/31/16 Furosemide [Lasix -] 40 mg PO DAILY tablet 05/31/16 Losartan Potassium [Cozaar -] 50 mg PO DAILY tablet 05/31/16 This patient is new to me today: No Emergency Visit: Yes ED Registration Date: 05/28/16 Care time: The patient presented to the Emergency Department on the above date and was hospitalized for further evaluation of their emergent condition. Critical Care patient: No - Discharge Referral Referred to [facility] Med P.[facility].: No
--- NOTE | 2016-05-31 14:22 | PN ---
Progress Note, Physician History of Present Illness: Pt seen and examined at bedside. She is awake and alert. She denies shortness of breath. - Current Medication List Current Medications: Active Medications Acetaminophen (Tylenol -) 500 mg PO Q6H PRN PRN Reason: FEVER OR PAIN Last Admin: 05/27/16 21:49 Dose: 500 mg Al Hydroxide/Mg Hydroxide (Mylanta Oral Suspension -) 30 ml PO Q6HPO PRN PRN Reason: INDIGESTION Last Admin: 05/29/16 21:32 Dose: 30 ml Amlodipine Besylate (Norvasc -) 5 mg PO DAILY [facility] Last Admin: 05/31/16 09:03 Dose: 5 mg Atorvastatin Calcium (Lipitor -) 20 mg PO HS [facility] Last Admin: 05/30/16 23:19 Dose: 20 mg Furosemide (Lasix -) 40 mg PO DAILY [facility] Last Admin: 05/31/16 09:03 Dose: 40 mg Gabapentin (Neurontin -) 300 mg PO TID [facility] Last Admin: 05/31/16 13:18 Dose: 300 mg Heparin Sodium (Porcine) (Heparin -) 5,000 unit SQ TID [facility] Last Admin: 05/31/16 13:18 Dose: 5,000 unit Hydrocortisone (Anusol 2.5% Hc Cream -) 1 applic TP DAILY [facility] Last Admin: 05/31/16 09:04 Dose: 1 applic Insulin Aspart (Novolog Vial Sliding Scale -) 1 vial SQ ACHS [facility] PRN Reason: Protocol Last Admin: 05/31/16 12:29 Dose: 2 units Insulin Detemir (Levemir Vial) 40 units SQ DAILY [facility] Last Admin: 05/31/16 09:02 Dose: 40 units Losartan Potassium (Cozaar -) 50 mg PO DAILY [facility] Last Admin: 05/31/16 09:03 Dose: 50 mg Mirtazapine (Remeron -) 45 mg PO DAILY [facility] Last Admin: 05/31/16 09:03 Dose: 45 mg Tramadol HCl (Ultram -) 25 mg PO BID [facility] Last Admin: 05/31/16 09:03 Dose: 25 mg Venlafaxine HCl (Effexor Xr -) 75 mg PO DAILY@0800 [facility] Last Admin: 05/31/16 09:02 Dose: 75 mg Venlafaxine HCl (Effexor Xr -) 150 mg PO DAILY@1730 [facility] Last Admin: 05/30/16 17:58 Dose: 150 mg - Objective Vital Signs: Vital Signs Temperature 98.2 F 05/31/16 09:10 Pulse Rate 66 05/31/16 10:43 Respiratory Rate 18 05/31/16 09:10 Blood Pressure 127/66 05/31/16 09:10 O2 Sat by Pulse Oximetry (%) 95 05/31/16 10:43 Constitutional: Yes: Calm Eyes: Yes: Conjunctiva Clear HENT: Yes: Atraumatic Neck: Yes: Supple Cardiovascular: Yes: S1, S2 Respiratory: Yes: CTA Bilaterally, On Nasal O2 Gastrointestinal: Yes: Soft, Abdomen, Obese Genitourinary: Yes: WNL Musculoskeletal: Yes: Other (bilateral knee replacement) Edema: No Neurological: Yes: Oriented Psychiatric: Yes: Oriented Labs: CBC, BMP 05/31/16 06:00 05/31/16 06:00 INR, PTT INR 0.96 (0.82-1.09) 05/26/16 09:00 Problem List - Problems (1) CHF exacerbation Code(s): I50.9 - HEART FAILURE, UNSPECIFIED Qualifiers: Qualified Code(s): I50.33 - Acute on chronic diastolic (congestive) heart failure (2) SOB (shortness of breath) Code(s): R06.02 - SHORTNESS OF BREATH (3) Upper respiratory infection Code(s): J06.9 - ACUTE UPPER RESPIRATORY INFECTION, UNSPECIFIED Qualifiers: Qualified Code(s): J06.9 - Acute upper respiratory infection, unspecified; B97.89 - Other viral agents as the cause of diseases classified elsewhere (4) Diabetes Code(s): E11.9 - TYPE 2 DIABETES MELLITUS WITHOUT COMPLICATIONS (5) Hyperlipidemia Code(s): E78.5 - HYPERLIPIDEMIA, UNSPECIFIED (6) Hypertension Code(s): I10 - ESSENTIAL (PRIMARY) HYPERTENSION Assessment/Plan Current Medications Generic Name Dose Route Start Last Admin Trade Name Freq PRN Reason Stop Dose Admin Acetaminophen 500 mg 05/27/16 21:27 05/27/16 21:49 Tylenol - PO 500 mg Q6H PRN Administration FEVER OR PAIN Al Hydroxide/Mg Hydroxide 30 ml 05/26/16 12:55 05/29/16 21:32 Mylanta Oral Suspension - PO 30 ml Q6HPO PRN Administration INDIGESTION Amlodipine Besylate 5 mg 05/27/16 10:00 05/31/16 09:03 Norvasc - PO 5 mg DAILY [facility] Administration Atorvastatin Calcium 20 mg 05/26/16 22:00 05/30/16 23:19 Lipitor - PO 20 mg HS [facility] Administration Furosemide 40 mg 05/30/16 10:00 05/31/16 09:03 Lasix - PO 40 mg DAILY [facility] Administration Gabapentin 300 mg 05/26/16 14:00 05/31/16 13:18 Neurontin - PO 300 mg TID [facility] Administration Heparin Sodium (Porcine) 5,000 unit 05/28/16 22:00 05/31/16 13:18 Heparin - SQ 5,000 unit TID [facility] Administration Hydrocortisone 1 applic 05/26/16 12:15 05/31/16 09:04 Anusol 2.5% Hc Cream - TP 1 applic DAILY [facility] Administration Insulin Aspart 1 vial 05/26/16 16:30 05/31/16 12:29 Novolog Vial Sliding Scale - SQ 2 units ACHS [facility] Administration Protocol Insulin Detemir 40 units 05/26/16 12:00 05/31/16 09:02 Levemir Vial SQ 40 units DAILY [facility] Administration Losartan Potassium 50 mg 05/27/16 20:52 05/31/16 09:03 Cozaar - PO 50 mg DAILY [facility] Administration Mirtazapine 45 mg 05/26/16 13:15 05/31/16 09:03 Remeron - PO 45 mg DAILY [facility] Administration Tramadol HCl 25 mg 05/27/16 22:00 05/31/16 09:03 Ultram - PO 25 mg BID [facility] Administration Venlafaxine HCl 75 mg 05/27/16 08:00 05/31/16 09:02 Effexor Xr - PO 75 mg DAILY@0800 [facility] Administration Venlafaxine HCl 150 mg 05/27/16 17:30 05/30/16 17:58 Effexor Xr - PO 150 mg DAILY@1730 [facility] Administration Impression 1. CKD 2. CHF 3. DM 4. hyperlipidemia 5. dyspnea 6. proteinuria Plan - renal function is stabilizing - cont lasix at 40 mg daily - will need outpt follow up - cont cozaar - SOB likely multifactorial - proteinuria can be explained by DM and HTN Dr Pressley
--- NOTE | 2016-05-31 14:44 | PN ---
Teaching Attending Note Name of Resident: Hima Liz ATTENDING PHYSICIAN STATEMENT I saw and evaluated the patient. I reviewed the resident's note and discussed the case with the resident. I agree with the resident's findings and plan as documented. SUBJECTIVE: Patient is feeling better, off oxygen patient drops her saturation to mid 80's. Otherwise comfortable with no acute distress. OBJECTIVE: Vital Signs Temperature 98.2 F 05/31/16 09:10 Pulse Rate 66 05/31/16 10:43 Respiratory Rate 18 05/31/16 09:10 Blood Pressure 127/66 05/31/16 09:10 O2 Sat by Pulse Oximetry (%) 95 05/31/16 10:43 GENERAL: The patient is awake, alert, and fully oriented, in no acute distress. HEAD: Normal with no signs of trauma. ENT: Ears normal, nares patent, oropharynx clear without exudates, moist mucous membranes. LUNGS: Breath sounds equal, clear to auscultation bilaterally, no wheezes, fine crackles present in basal area b/l HEART: Regular rate s1s2 opsitive , REMIGIO 2/6 ,moderate MR ABDOMEN: Soft, nontender, nondistended, normoactive bowel sounds, no guarding, EXTREMITIES: 2+ pulses, warm, well-perfused, no edema. PSYCH: Normal mood, normal affect. SKIN: Warm, dry, normal turgor, no rashes or lesions noted CBCD WBC 8.7 K/mm3 (4.0-10.0) 05/31/16 06:00 RBC 3.93 M/mm3 (3.60-5.2) 05/31/16 06:00 Hgb 11.5 GM/dL (10.7-15.3) 05/31/16 06:00 Hct 34.6 % (32.4-45.2) 05/31/16 06:00 MCV 88.1 fl (80-96) 05/31/16 06:00 MCHC 33.3 g/dl (32.0-36.0) 05/31/16 06:00 RDW 13.4 % (11.6-15.6) 05/31/16 06:00 Plt Count 221 K/MM3 (134-434) D 05/31/16 06:00 MPV 9.7 fl (7.5-11.1) 05/31/16 06:00 CMP Sodium 143 mmol/L (136-145) 05/31/16 06:00 Potassium 4.3 mmol/L (3.5-5.1) 05/31/16 06:00 Chloride 104 mmol/L (98-107) 05/31/16 06:00 Carbon Dioxide 30 mmol/L (21-32) 05/31/16 06:00 Anion Gap 9 (8-16) 05/31/16 06:00 BUN 32 mg/dL (7-18) H 05/31/16 06:00 Creatinine 1.2 mg/dL (0.55-1.02) H 05/31/16 06:00 Creat Clearance w eGFR 38.84 (>60) 05/26/16 09:00 Random Glucose 159 mg/dL (74-106) H 05/31/16 06:00 Calcium 8.6 mg/dL (8.5-10.1) 05/31/16 06:00 Total Bilirubin 0.5 mg/dL (0.2-1.0) D 05/26/16 09:00 AST 28 U/L (15-37) D 05/26/16 09:00 ALT 23 U/L (12-78) D 05/26/16 09:00 Alkaline Phosphatase 95 U/L (45-117) 05/26/16 09:00 Total Protein 8.4 g/dl (6.4-8.2) H 05/26/16 09:00 Albumin 3.8 g/dl (3.4-5.0) D 05/26/16 09:00 CARDIAC ENZYMES Creatine Kinase 86 IU/L (26-192) 05/26/16 09:00 Troponin I < 0.02 ng/ml (0.00-0.05) 05/26/16 15:30 Current Medications Generic Name Dose Route Start Last Admin Trade Name Freq PRN Reason Stop Dose Admin Acetaminophen 500 mg 05/27/16 21:27 05/27/16 21:49 Tylenol - PO 500 mg Q6H PRN Administration FEVER OR PAIN Al Hydroxide/Mg Hydroxide 30 ml 05/26/16 12:55 05/29/16 21:32 Mylanta Oral Suspension - PO 30 ml Q6HPO PRN Administration INDIGESTION Amlodipine Besylate 5 mg 05/27/16 10:00 05/31/16 09:03 Norvasc - PO 5 mg DAILY [facility] Administration Atorvastatin Calcium 20 mg 05/26/16 22:00 05/30/16 23:19 Lipitor - PO 20 mg HS [facility] Administration Furosemide 40 mg 05/30/16 10:00 05/31/16 09:03 Lasix - PO 40 mg DAILY [facility] Administration Gabapentin 300 mg 05/26/16 14:00 05/31/16 13:18 Neurontin - PO 300 mg TID [facility] Administration Heparin Sodium (Porcine) 5,000 unit 05/28/16 22:00 05/31/16 13:18 Heparin - SQ 5,000 unit TID [facility] Administration Hydrocortisone 1 applic 05/26/16 12:15 05/31/16 09:04 Anusol 2.5% Hc Cream - TP 1 applic DAILY [facility] Administration Insulin Aspart 1 vial 05/26/16 16:30 05/31/16 12:29 Novolog Vial Sliding Scale - SQ 2 units ACHS [facility] Administration Protocol Insulin Detemir 40 units 05/26/16 12:00 05/31/16 09:02 Levemir Vial SQ 40 units DAILY [facility] Administration Losartan Potassium 50 mg 05/27/16 20:52 05/31/16 09:03 Cozaar - PO 50 mg DAILY [facility] Administration Mirtazapine 45 mg 05/26/16 13:15 05/31/16 09:03 Remeron - PO 45 mg DAILY [facility] Administration Tramadol HCl 25 mg 05/27/16 22:00 05/31/16 09:03 Ultram - PO 25 mg BID [facility] Administration Venlafaxine HCl 75 mg 05/27/16 08:00 05/31/16 09:02 Effexor Xr - PO 75 mg DAILY@0800 [facility] Administration Venlafaxine HCl 150 mg 05/27/16 17:30 05/30/16 17:58 Effexor Xr - PO 150 mg DAILY@1730 [facility] Administration Medication Instructions Recorded Albuterol Sulfate Inhaler - 2 inh PO Q4H PRN 05/26/16 [Ventolin HFA Inhaler -] Amlodipine Besylate [Norvasc -] 5 mg PO DAILY 05/26/16 Gabapentin [Neurontin] 300 mg PO TID 05/26/16 Glimepiride 2 mg PO DAILY 05/26/16 Hydrocortisone 2.5% Lotion [Hytone 1 applic TP BID 05/26/16 2.5% Lotion -] Insulin Glargine,Hum.rec.anlog 50 units SQ DAILY 05/26/16 [Lantus Solostar PEN -] Mag Hydrox/Al Hydrox/Simeth [Rulox 30 ml PO BID PRN 05/26/16 Suspension] Mirtazapine [Remeron -] 45 mg PO HS 05/26/16 Venlafaxine HCl ER [Effexor Xr -] 75 mg PO DAILY 05/26/16 Venlafaxine HCl ER [Effexor Xr -] 150 mg PO HS 05/26/16 Acetaminophen [Tylenol 500 mg PO TID PRN #0 MDD 3 05/31/16 .Extra-Strength -] Albuterol 0.083% Nebulizer Aliza 1 amp NEB Q4H PRN #0 amp 05/31/16 [Ventolin 0.083% Nebulizer Soln -] Atorvastatin Ca [Lipitor] 20 mg PO HS tablet 05/31/16 Furosemide [Lasix -] 40 mg PO DAILY tablet 05/31/16 Losartan Potassium [Cozaar -] 50 mg PO DAILY tablet 05/31/16 Poor inspiratory effort with low lung volumes and moderate right and mild left lower lobe subsegmental atelectasis. Early infiltrate cannot be excluded and clinical correlation is needed. 4 mm left lower lobe pleural-based nodule. Follow-up CT scan in 12 months is suggested. Dilated pulmonary trunk at 3.6 cm suggestive of increased pulmonary arterial pressure Dilated ascending aorta at 4.3 cm. Coronary vascular calcifications. Cardiomegaly. Heterogeneous thyroid gland containing a 4 to 5 cm left thyroid lobe nodule with substernal extension further evaluation with thyroid ultrasound is suggested. Status post cholecystectomy. Poorly defined 2.2 cm splenic hypodensity of unclear etiology. This can be further evaluated with MRI without and with IV gadolinium. Severe right shoulder degenerative changes. ASSESSMENT AND PLAN: Patient is a 85 year old woman with a history of HTN, HLD, DMII, CHF (on lasix at [place]), prior admission for PNA, admitted with ear pain, throat pain, nasal congestion, and sob. #Acute on Diastolic CHF : with SOB ; improving on diuretic ,cardiac enzymes wnl x 2, no ischemia on ekg; needing oxygen at this time so patient is going to rehab. with oxygen. #Moderate right and mild left lower lobe subsegmental atelectasis given incentive spirometer to do 4x per day 10x each # PSVT self limited, no recurrence; beta jorge was held due to episode of bradycardia that occurred this admission while off O2. # 4 mm left lower lobe pleural-based nodule follow up CT in 12 month #Dilated pulmonary trunk at 3.6 cm suggestive of increased pulmonary arterial pressure # Dilated ascending aorta at 4.3 cm. with Coronary vascular calcifications would image again in 6 months and consider outpatient CT to assess aortic arch and descending thoracic aorta, discussed with (Cardiothoracic surgeon) # Heterogeneous thyroid gland containing a 4 to 5 cm left thyroid lobe nodule follow up with global security architect once off the rehab place # Poorly defined 2.2 cm splenic hypodensity of unclear etiology. needs to be further evaluated with MRI without and with IV gadolinium as per radiology #Severe right shoulder degenerative changes # ANISH on CKD : stable # DM : cont long acting insulin # Moderate MR # HTN controlled on current agents. DVT Px:Heparin sq
[2016-05-31 15:22] VITALS: BP 147/58; PULSE 72; TEMP 98.4
== END 2016-05-31 16:05 | DRG 291 ==
LOC: JER 08:21 → JERBED 10:42 → INTOOBSV 10:42 → UNDOADMOB 10:42 → JERBED 13:54 → UNDOADMOB 13:54 → J4S 15:47 → JERBED 15:47 → J4S 05-28 17:54 → OBSVTOIN 05-28 17:54
PROVIDERS: ADMIT Internal Medicine; ATTEND Internal Medicine
DX: I13.0 Hypertensive heart and chronic kidney disease with heart failure and stage 1 through stage 4 chronic kidney disease, or unspecified chronic kidney disease (principal); I50.33 Acute on chronic diastolic (congestive) heart failure; N17.9 Acute kidney failure, unspecified; I47.1 Supraventricular tachycardia; E11.9 Type 2 diabetes mellitus without complications; E78.5 Hyperlipidemia, unspecified; R51 Headache; L98.8 Other specified disorders of the skin and subcutaneous tissue; F32.9 Major depressive disorder, single episode, unspecified; J06.9 Acute upper respiratory infection, unspecified; E04.1 Nontoxic single thyroid nodule; N18.9 Chronic kidney disease, unspecified; Z96.653 Presence of artificial knee joint, bilateral; Z79.4 Long term (current) use of insulin
CPT/HCPCS: 36415; 71010-TC; 71250-TC; 76775-TC; 76856-TC; 80048; 80053; 81003; 81015; 82550; 82570; 82803; 83605; 83735; 83880; 84156; 84484; 85025; 85027; 85610; 85730; 87040; 87070; 87086; 87420; 87430; 87804; 93005; 93010; 93306-TC; 93970-TC; 94010; 94640; 94761; 97001-GP; 97116-GP; 99284-25; J1644

== ENCOUNTER 2017-07-14 09:07 | Emergency (ER) | payer OTHER, MEDICARE ==
--- NOTE | 2017-07-14 09:12 | PDOC ---
History of Present Illness - General Chief Complaint: Nausea/Vomiting Stated Complaint: SICK Time Seen by Provider: 07/14/17 09:11 History Source: Patient Exam Limitations: No Limitations - History of Present Illness Initial Comments: 07/14/17 09:21 Patient is a 86 year old woman with a history of HTN, HLD, DMII, CHF (on lasix at [place]), prior admission for PNA, [facility] for nausea, vomiting, abdominal pain and weakness. 07/14/17 09:22 Past History - Past Medical History Allergies/Adverse Reactions: Allergies Allergy/AdvReac Type Severity Reaction Status Date / Time No Known Allergies Allergy Verified 07/14/17 09:16 Home Medications: Ambulatory Orders Gabapentin [Neurontin] 300 mg PO HS 05/26/16 Glimepiride 4 mg PO DAILY 05/26/16 Insulin Glargine,Hum.rec.anlog [Lantus Solostar PEN -] 60 units SQ DAILY Mirtazapine [Remeron -] 30 mg PO HS 05/26/16 Atorvastatin Ca [Lipitor] 20 mg PO HS tablet 05/31/16 Furosemide [Lasix -] 40 mg PO DAILY tablet 05/31/16 Losartan Potassium [Cozaar -] 100 mg PO DAILY 07/14/17 Ranitidine HCl 300 mg PO DAILY 07/14/17 Anemia: No Asthma: No Cancer: No Cardiac Disorders: No CVA: No COPD: No CHF: No Dementia: No Diabetes: Yes (IDDM) GI Disorders: No Disorders: No HTN: Yes Hypercholesterolemia: Yes Liver Disease: No Psychiatric Problems: Yes (depression, insomnia) Seizures: No Thyroid Disease: Yes (thyroid nodule) - Surgical History Appendectomy: Yes Cholecystectomy: Yes - Suicide/Smoking/Psychosocial Hx Smoking History: Never smoked Have you smoked in the past 12 months: No Hx Alcohol Use: No Drug/Substance Use Hx: No Substance Use Type: None Review of Systems - Review of Systems Able to Perform ROS?: Yes Is the patient limited Congolese proficient: No Constitutional: Yes: See HPI, Weakness HEENTM: No: Symptoms Reported Respiratory: Yes: Cough Cardiac (ROS): No: Symptoms Reported ABD/GI: Yes: See HPI : No: Symptoms Reported Musculoskeletal: No: Symptoms Reported Integumentary: No: Symptoms Reported All Other Systems: Reviewed and Negative *Physical Exam - Physical Exam General Appearance: Yes: Nourished, Appropriately Dressed. No: Apparent Distress HEENT: positive: EOMI, MATY, Normal ENT Inspection Respiratory/Chest: positive: Lungs Clear, Normal Breath Sounds. negative: Chest Tender Cardiovascular: positive: Regular Rhythm, Regular Rate, S1, S2 Vascular Pulses: Dorsalis-Pedis (R): 2+, Doralis-Pedis (L): 2+ Gastrointestinal/Abdominal: positive: Normal Bowel Sounds, Soft, Protuberent. negative: Tender Musculoskeletal: positive: Normal Inspection. negative: CVA Tenderness Extremity: positive: Normal Capillary Refill, Normal Inspection Neurologic: positive: Fully Oriented, Alert, Normal Mood/Affect ED Treatment Course - LABORATORY CBC & Chemistry Diagram: 07/14/17 10:19 07/14/17 11:45 Medical Decision Making - Medical Decision Making 07/14/17 10:31 Viral gastro vs pneumonia vs CAD Basic labs, pending Chest xray: Since the prior study of 05/28/2016, again is a large heart with sclerotic unfolded aorta but the lungs are better aerated as the congestive changes and fullness of the right hilum are no longer seen. Correlation recommended. *DC/Admit/Observation/Transfer Diagnosis at time of Disposition: Constipation - Discharge Dispostion Disposition: AGAINST MEDICAL ADVICE Condition at time of disposition: Fair - Referrals Referrals: Twan Lainez MD [Staff Physician] - - Patient Instructions Printed Discharge Instructions: DI for Vomiting -- Adult Additional Instructions: Come back to the ER for any new, worsening or concerning symptom - Post Discharge Activity
[2017-07-14 09:16] VITALS: BMI 35.4
--- NOTE | 2017-07-14 09:32 | PDOC ---
Attending Attestation - [facility] HPI: 07/14/17 10:08 The patient is a 86 year old female, with a significant past medical history of hypertension, hyperlipidemia, IDDM, CHF, sent from [facility], who presents to the emergency department with, three nausea and cold-like symptoms. As per patient, she had two episodes of emesis yesterday with associated nausea and weakness continuing today. She describes her emesis as brown fluid. She reports right ear pain, sore throat, and a productive cough with brown flem for three days. She reports her last bowel movement to be this morning and she has been able to keep down both her dinner and breakfast. She denies recent fevers, chills, headache or dizziness. She denies recent diarrhea or constipation. She denies recent dysuria, frequency, urgency or hematuria. She denies recent chest pain or shortness of breath. Allergies: NKA Social history: Nonsmoker. Denies EtOH use and recreational drug use. - Physicial Exam PE: 07/14/17 10:09 Constitutional: Awake, alert, oriented. No acute distress. Head: Normocephalic. Atraumatic Eyes: PERRL. EOMI. Conjunctivae are not pale. ENT: Post nasal drip in posterior pharynx with erythema without exudates. Mucous membranes are moist and intact. Uvula midline. Neck: Supple. Full ROM. No lymphadenopathy. Cardiovascular: Regular rate. Regular rhythm. S1, S2 regular. Distal pulses are 2+ and symmetric. Pulmonary/Chest: No evidence of respiratory distress. Clear to auscultation bilaterally No wheezing, rales or rhonchi. Abdominal: Soft and non-distended. There is no tenderness. No rebound, guarding or rigidity. No organomegaly. No palpable masses. Good bowel sounds. Back: No CVA tenderness. Musculoskeletal: +1 pitting edema of bilateral legs. No cyanosis. No clubbing. Full range of motion in all extremities. No calf tenderness. Radial/ pedal pulses are intact and 2+ bilaterally Skin: Skin is warm and dry. No petechiae. No purpura. Neurological: Alert and oriented to person, place, and time. Cranial nerves II -XII are grossly intact. Normal speech. Strength is grossly symmetric. No sensory deficits. Psychiatric: Good eye contact. Normal interaction, affect and behavior. - Medical Decision Making 07/14/17 16:29 EXAM: CTA CHEST WITH IV CONTRAST TECHNIQUE: One of more of the following dose reduction techniques were use: Automated exposure control adjustment of the mA and/or kV according to the patient size, use of iterative reconstructive technique. CT of the chest is performed with multi-planar reconstructions per PE protocol after the uneventful intravenous injection of IV contrast. Additional maximum intensity projection (MIP) 3D post contrast images of the chest were reviewed. INDICATION: Shortness of breath. Rule out acute pulmonary embolism COMPARISON: None FINDINGS: CARDIOVASCULAR: Mild to moderate cardiomegaly with coronary artery and valvular calcifications.There is no significant pericardial effusion. Atherosclerotic calcification of the aorta without aneurysm. Pulmonary embolism: No evidence of acute pulmonary embolism centrally. The peripheral subsegmental branches are suboptimally evaluated secondary to poor bolusing. LUNGS: Hypoventilatory examination with subsequent atelectasis of the lower lobes. The tracheobronchial tree is grossly patent. There is no airspace consolidation, pleural effusion or pneumothorax. LYMPH NODES: There is no axillary, mediastinal or hilar lymphadenopathy based on size criteria alone. UPPER ABDOMEN: Please see the accompanying CT of the abdomen and pelvis report. BONES: No suspicious osseous abnormality. Mild thoracic spondylosis. Multinodular left thyroid gland. IMPRESSION: 1. No evidence of acute pulmonary embolism centrally. The peripheral subsegmental branches are suboptimally evaluated secondary to poor bolusing. 2. Hypoventilatory examination with subsequent atelectasis of the lower lobes. The tracheobronchial tree is grossly patent. There is no airspace consolidation, pleural effusion or pneumothorax. 3. [id number] degree cardiomegaly with mild pulmonary venous congestion. This CT exam has been performed using low dose protocols to limit radiation exposure to as low as reasonably achievable. This center is recognized and certified by the [employer], a designation awarded to centers who have demonstrated faculty competency, clinical image excellence and radiation safety compliance requirements. Read by: Rigo Thomas MD EXAM: CT ABDOMEN AND PELVIS WITH IV CONTRAST HISTORY:Abdominal pain TECHNIQUE: Contiguous axial images were obtained utilizing a multislice, multidetector CT scanner. Post-processed reformations were also submitted for review. COMPARISON: None available FINDINGS: Abdomen: Liver: Mild hepatomegaly with steatosis. Small calcifications in the anterior segment of the right hepatic lobe compatible with remote granulomatous disease. Bile Ducts: Within normal limits. Gallbladder:: Status post cholecystectomy. Pancreas:: Diffuse fatty atrophy. Spleen:: There a few small hypoattenuation lesion in the spleen, which are favored to represent small hemangiomas versus splenic cysts. Adrenals: Within normal limits. Kidneys: No evidence of hydronephrosis or nephrolithiasis. Bilateral extrarenal pelvises. Abdominal Lymph Nodes: Within normal limits. Stomach:: Small sliding hiatal hernia Bowel:: No evidence of small bowel obstruction or mass. Colonic diverticulosis without evidence of acute diverticulitis. Moderate degree stool burden throughout the colon compatible with constipation. Pelvis: Reproductive Organs: Status post hysterectomy. Bladde: Mild diffuse thickening of the bladder likely secondary to underdistention. Please clinically with urinalysis. Pelvic Lymph Nodes: Within normal limits. Peritoneum: Within normal limits. Vessels: Aorta: Atherosclerotic calcification of the aorta without aneurysm or dissection. Retroperitoneum: Within normal limits. Bones: : No suspicious osseous lesions. Moderate lumbar spondylosis. Postsurgical changes of the left femoral neck fracture with an intramedullary enma and transfixing screw through the left femoral head neck junction. IMPRESSION: 1. No evidence of small bowel obstruction or mass. Colonic diverticulosis without evidence of acute diverticulitis. Moderate degree stool burden throughout the colon compatible with constipation. 2. Mild diffuse thickening of the bladder likely secondary to underdistention. Please clinically with urinalysis. COMMENTS: This CT exam has been performed using low dose protocols to limit radiation exposure to as low as reasonably achievable. This center is recognized and certified by the [employer], a designation awarded to centers who have demonstrated faculty competency, clinical image excellence and radiation safety compliance requirements. Read by: Rigo Thomas MD <Charisse Putnam - Last Filed: 07/14/17 16:38> - Resident Resident Name: Haim Hilton - ED Attending Attestation I have performed the following: I have examined & evaluated the patient, The case was reviewed & discussed with the resident, I agree w/resident's findings & plan, Exceptions are as noted - Medical Decision Making 07/14/17 09:31 I, Dr. Andria Uribe, DO, attest that this document has been prepared under my direction and personally reviewed by me in its entirety. I further attest, that it accurately reflects all work, treatment, procedures and medical decision -making performed by me. 07/14/17 09:54 a/p: 86yo female with rhinorrhea, sore throat, n/v x 2 and cough -abd cramping, but abd is soft -suspect poss pna vs gastritis vs atypical acs -will check labs, ekg, cxr -mild fluid hydration -will monitor and reassess -zofran and pepcid for n/v 07/14/17 16:45 pt with constipation on ct no pna elevated lactate would repeat lactate, but patient states she wants to leave pt requesting to sign out AMA pt understands risks with signing out AMA. answered all questions 07/14/17 16:46 Note: The patient insists on leaving the emergency dept and is signing out against medical advice. The patient understands the risks and complications that may result from the refusal of medical care and admission which includes and permanent disability. The patient has the mental capacity of understanding the risks of refusing care and is capable of making an informed decision. The patient was instructed to return to the emergency department should [she] change [she] mind regarding medical care or should [she] condition worsen. The patient signed the Against Medical Advice form. 07/14/17 16:46 <Andria Uribe - Last Filed: 07/14/17 16:46> Heart Score/ECG Review - ECG Intrepretation Comment:: 07/14/17 09:53 sinus at 78, 1st degree av block, nl axis, lvh, no acute st/t wave findings <Andria Uribe - Last Filed: 07/14/17 16:46> Attestations - Attestations 07/14/17 10:09 Documentation prepared by Charisse Putnam, acting as medical laboratory technicians for Andria Uribe DO. <Charisse Putnam - Last Filed: 07/14/17 16:38>
[2017-07-14] MEDS ORDERED: ONDANSETRON 4 MG/2 ML VIAL IVPUSH ONE (09:34)
[2017-07-14] MEDS ORDERED: SODIUM CHLORIDE 0.9% 1000 ML INFUS.BAG IV ONE (09:34)
[2017-07-14] MEDS ORDERED: FAMOTIDINE 20 MG/50 ML IVPB 20 MG/50 ML MG IVPB ONE ×2 (10:00→10:05)
[2017-07-14] MEDS ORDERED: ONDANSETRON 4 MG/2 ML VIAL ONE (10:04)
[2017-07-14 10:34] LABS: BASO % 0.7 % (0-2.0); EOS % 2.7 % (0-4.5); HEMATOCRIT 40.4 % (32.4-45.2); HEMOGLOBIN 13.1 GM/dL (10.7-15.3); LYMPH % 16.1 % (8-40); MCH 27.8 pg (25.7-33.7); MCHC 32.4 g/dl (32.0-36.0); MEAN PLT VOLUME 9.6 fl (7.5-11.1); MONO % 10.2 % (3.8-10.2); NEUT % 70.3 % (42.8-82.8); PLATELET COUNT 255 K/MM3 (134-434); RDW 14.2 % (11.6-15.6); WHITE BLOOD COUNT 11.4 K/mm3 (4.0-10.0)
[2017-07-14 10:36] VITALS: TEMP 98.2
--- NOTE | 2017-07-14 11:06 | EKG ---
Test Reason : Blood Pressure : / mmHG Vent. Rate : 078 BPM Atrial Rate : 078 BPM P-R Int : 208 ms QRS Dur : 092 ms QT Int : 402 ms P-R-T Axes : 024 -19 -12 degrees QTc Int : 458 ms NORMAL SINUS RHYTHM MODERATE VOLTAGE CRITERIA FOR LVH, MAY BE NORMAL VARIANT INFERIOR INFARCT , AGE UNDETERMINED ABNORMAL ECG WHEN COMPARED WITH ECG OF 26-MAY-2016 08:37, INFERIOR INFARCT IS NOW PRESENT Confirmed by LARISSA FULLER, TRINIDAD ([id number]) on 07/14/2017 11:05:55 AM Referred By: Confirmed By:TRINIDAD DIAS MD
[2017-07-14 11:46] LABS: URINE APPEARANCE CLEAR; URINE BILIRUBIN NEGATIVE (NEGATIVE); URINE BLOOD NEGATIVE (NEGATIVE); URINE COLOR STRAW; URINE GLUCOSE (UA) NEGATIVE (NEGATIVE); URINE KETONE NEGATIVE (NEGATIVE); URINE LEUK ESTERASE NEGATIVE (NEGATIVE); URINE NITRITE NEGATIVE (NEGATIVE); URINE PROTEIN NEGATIVE (NEGATIVE); URINE UROBILINOGEN NEGATIVE mg/dL (0.2-1.0)
[2017-07-14 12:29] LABS: ALBUMIN 3.1 g/dl (3.4-5.0); ANION GAP 7 (8-16); BILIRUBIN,TOTAL 0.6 mg/dL (0.2-1.0); BLOOD UREA NITROGEN 24 mg/dL (7-18); CALCIUM 7.7 mg/dL (8.5-10.1); CHLORIDE 109 mmol/L (98-107); CO2 27 mmol/L (21-32); CREATININE 1.2 mg/dL (0.55-1.02); GLUCOSE,RANDOM 254 mg/dL (74-106); LIPASE 133 U/L (73-393); MAGNESIUM 1.9 mg/dL (1.8-2.4); POTASSIUM 4.1 mmol/L (3.5-5.1); SGOT/AST 12 U/L (15-37); SGPT/ALT 13 U/L (12-78); SODIUM 143 mmol/L (136-145); TOT PROT 6.9 g/dl (6.4-8.2)
[2017-07-14 12:32] LABS: ALK PHOS 93 U/L (45-117)
[2017-07-14 14:03] VITALS: BP 146/67; PULSE 67
--- NOTE | 2017-07-14 17:22 | PDOC ---
*Physical Exam - Vital Signs Last Vital Signs Temp Pulse Resp BP Pulse Ox 98.2 F 67 20 146/67 98 07/14/17 09:52 07/14/17 14:02 07/14/17 14:02 07/14/17 14:02 07/14/17 14:02 ED Treatment Course - LABORATORY CBC & Chemistry Diagram: 07/14/17 10:19 07/14/17 11:45 - ADDITIONAL ORDERS Additional order review: Laboratory Results 07/14/17 07/14/17 07/14/17 11:45 11:45 11:38 Sodium 143 Potassium 4.1 Chloride 109 H Carbon Dioxide 27 Anion Gap 7 L BUN 24 H Creatinine 1.2 H Creat Clearance w eGFR 42.50 Random Glucose 254 H Lactic Acid Calcium 7.7 L Magnesium 1.9 Total Bilirubin 0.6 AST 12 L ALT 13 Alkaline Phosphatase 93 Creatine Kinase 50 Troponin I < 0.02 B-Natriuretic Peptide 370.85 Total Protein 6.9 Albumin 3.1 L Lipase 133 Urine Color Straw Urine Appearance Clear Urine pH 5.0 Ur Specific [place] 1.005 Urine Protein Negative Urine Glucose (UA) Negative Urine Ketones Negative Urine Blood Negative Urine Nitrite Negative Urine Bilirubin Negative Urine Urobilinogen Negative Ur Leukocyte Esterase Negative 07/14/17 07/14/17 07/14/17 10:19 10:19 10:19 Sodium Cancelled Potassium Cancelled Chloride Cancelled Carbon Dioxide Cancelled Anion Gap Cancelled BUN Cancelled Creatinine Cancelled Creat Clearance w eGFR Cancelled Random Glucose Cancelled Lactic Acid 3.0 H* Calcium Cancelled Magnesium Cancelled Total Bilirubin Cancelled AST Cancelled ALT Cancelled Alkaline Phosphatase Cancelled Creatine Kinase Cancelled Troponin I Cancelled B-Natriuretic Peptide Cancelled Total Protein Cancelled Albumin Cancelled Lipase Cancelled Urine Color Urine Appearance Urine pH Ur Specific [place] Urine Protein Urine Glucose (UA) Urine Ketones Urine Blood Urine Nitrite Urine Bilirubin Urine Urobilinogen Ur Leukocyte Esterase 07/14/17 10:19 RBC 4.70 MCV 86.0 MCHC 32.4 RDW 14.2 MPV 9.6 Neutrophils % 70.3 D Lymphocytes % 16.1 D Monocytes % 10.2 Eosinophils % 2.7 Basophils % 0.7 - RADIOLOGY Radiology Studies Ordered: Category Date Time Status ABDOMEN & PELVIS CT WITH CONTR [CT] Stat CT Scan 07/14/17 11:[address] WITH CONTRAST [CT] Stat CT Scan 07/14/17 11:47 Taken CXRPORT [CHEST X-RAY PORTABLE*] [RAD] Stat Radiology 07/14/17 09:52 Completed - Medications Given in the ED: ED Medications Discontinued Medications Generic Name Dose Route Start Last Admin Trade Name Nicol PRN Reason Stop Dose Admin Famotidine/Sodium Chloride 20 mg in 50 mls @ 100 mls/hr 07/14/17 10:00 10:19 Pepcid 20 Mg Premixed Ivpb - IVPB 07/14/17 10:29 100 mls/hr ONCE ONE Administration Ondansetron HCl 4 mg 07/14/17 09:34 07/14/17 10:19 Zofran Injection IVPUSH 07/14/17 09:35 4 mg ONCE ONE Administration Sodium Chloride 500 ml 07/14/17 09:34 07/14/17 10:19 Normal Saline - IV 07/14/17 09:35 500 ml ONCE ONE Administration *DC/Admit/Observation/Transfer Diagnosis at time of Disposition: Constipation - Discharge Dispostion Disposition: HOME Condition at time of disposition: Fair Admit: No - Referrals Referrals: Twan Lainez MD [Staff Physician] - - Patient Instructions Printed Discharge Instructions: DI for Vomiting -- Adult Additional Instructions: Come back to the ER for any new, worsening or concerning symptom. Follow up with Dr. Lainez GI doc with your Ct scan results. - Post Discharge Activity
== END 2017-07-14 18:20 | disposition home or self-care (01) ==
LOC: JER 09:07
DX: K59.00 Constipation, unspecified (principal); I10 Essential (primary) hypertension; E78.00 Pure hypercholesterolemia, unspecified; E11.9 Type 2 diabetes mellitus without complications; Z79.4 Long term (current) use of insulin; I50.9 Heart failure, unspecified
CPT/HCPCS: 36415; 71045-TC-FY; 71260-TC; 74177-TC; 80053; 81003; 82550; 83605; 83690; 83735; 83880; 84484; 85025; 93005; 93010; 99283-25